=== PATIENT | female | born 1970 | race Caucasian/White ===

== ENCOUNTER 2023-03-06 14:23 | Emergency (ER) | payer OTHER, SELFPAY ==
[2023-03-06 14:34] VITALS: BP 146/89; PULSE 104; RESP 18; TEMP 36.7; O2SAT 95
[2023-03-06 14:36] VITALS: BP 134/93; PULSE 103; RESP 16; TEMP 36.4; O2SAT 94; BMI 29.0
--- NOTE | 2023-03-06 14:46 | PC.NURSE ---
PT ARRIVES SOMNOLENT, THOUGH ROUSBALE TO VERBAL STIM. ABLE TO ANSWER QUESTIONS, THOUGH INCONSISTENT. STATES LAST USED HEROIN THIS AM, 2 BAGS INTRAVENOUSLY. PINPOINT PUPILS, RR 16, EVEN AND NONLABOURED,.
[2023-03-06 16:10] LABS: MANUAL DIFF FLAG NO
[2023-03-06 16:12] VITALS: BP 114/79; PULSE 97; RESP 19; O2SAT 94
[2023-03-06 16:14] LABS: Basophils Percent Auto 0.3 % (0-2); Eosinophils Absolute Auto 0.1 X10*3/uL (0.0-0.4); Eosinophils Percent Auto 1.3 % (0-4); Hematocrit 36.5 % (37.0-47.0); Imm Gran Abs Auto 0.01 X10*3/uL (0.00-0.03); Imm Gran Pct Auto 0.2 % (0.0-0.4); Lymphocytes Absolute Auto 0.6 X10*3/uL (1.2-4.9); Lymphocytes Percent Auto 9.9 % (20-40); Mean Corpuscular HGB Conc 32.9 g/dl (31.0-35.0); Mean Corpuscular Hemoglobin 27.8 pg (27.0-33.0); Mean Corpuscular Volume 84.5 fL (80.0-98.0); Monocytes Absolute Auto 0.3 X10*3/uL (0.1-1.2); Monocytes Percent Auto 4.4 % (2-11); Neutrophils Absolute Auto 5.2 x10*3/uL (2.0-8.3); Neutrophils Percent Auto 83.9 % (45-73); Platelet Count 191 X10*3/uL (160-400); Red Blood Count 4.32 X10*6/uL (4.20-5.50); Red Cell Distribution Width 12.5 % (11.0-16.0); White Blood Count 6.2 X10*3/uL (4.8-10.8)
[2023-03-06 16:31] LABS: Lactic Acid 1.2 mmol/L (0.5-2.0)
[2023-03-06 16:36] LABS: Alanine Aminotransferase 16 U/L (0-31); Albumin Level 3.1 g/dL (3.5-5.0); Alkaline Phosphatase 60 U/L (39-117); Anion Gap 12 (12-20); Aspartate Amino Transferase 28 U/L (5-31); Bilirubin Total 0.2 mg/dL (0.0-1.0); Blood Urea Nitrogen 8 mg/dL (9-16); C Reactive Protein 3.06 mg/dL (< or = 0.50); Calcium 8.6 mg/dL (8.4-10.2); Carbon Dioxide 25 mmol/L (22-29); Chloride 105 mmol/L (96-108); Creatinine Clr Calc Pharmacy 99.6; Estimated Glomerular Filt Rate > 60; Glucose Random 90 mg/dL (60-115); Potassium 3.3 mmol/L (3.3-5.1); Sodium 139 mmol/L (135-145); Total Protein 7.2 g/dL (6.5-8.0)
--- NOTE | 2023-03-06 16:49 | ED_ITS ---
HPI - Skin/Abscess/Foreign Bdy General Chief complaint: Wound/Laceration Stated complaint: SWOLLEN EYES,?INFECT VS BITE PER EMS Time Seen by Provider: 03/06/23 16:28 Source: patient Mode of arrival: ambulatory Limitations: no limitations History of Present Illness HPI narrative: Patient 52 years old female with history of substance abuse comes here with swelling of the forehead with redness spreading to the eyes for last 2 days no fever patient the labs done prior to my evaluation showed normal WBC and Lactic acid level Related Data Previous Rx's Medication Instructions Recorded cephalexin 500 mg capsule 500 mg PO QID 10 days #40 caps 03/06/23 doxycycline hyclate 100 mg tablet 100 mg PO BID #20 tabs 03/06/23 Allergies Allergy/AdvReac Type Severity Reaction Status Date / Time acetaminophen [From TYLENOL] Allergy Unknown HIVES Verified 03/06/23 14:41 Review of Systems 2 Review of Systems: Yes all other systems are reviewed and are [facility] Social History Social History Smoked in Last 30 Days: No Use of substances other than those prescribed or required for medical reasons: Yes Substance Use Type: Heroin and IV Drugs Substance Use Frequency: Chronic Longstanding Last Used Substance: Just Prior to Admission Advance Directives: No Advance Directives Information Provided: No Physical Exam 2 Vital Signs: Vital Signs: Last Vital Signs Temp 97.6 F 03/06/23 14:36 Pulse 97 03/06/23 16:12 Resp 19 03/06/23 16:12 BP 114/79 03/06/23 16:12 Pulse Ox 94 03/06/23 16:12 O2 Del Method Room Air 03/06/23 16:12 BMI result Body Mass Index 29.0 Appearance: Alert. Oriented X3. No acute distress. ENT: Pharynx normal. Oral Mucosa moist small abscess on her forehead with pus discharge and surrounding cellulitis Neck: Normal inspection. Neck supple. CVS: Normal heart rate and rhythm. Pulses normal. Respiratory: No respiratory distress. Abdomen: Soft and nontender. Skin: Skin warm and dry. Small abscess with cellulitic changes on the forehead. Normal skin turgor. Neuro: Oriented X 3. Medications Administered Discontinued Medications Generic Name Dose Route Start Last Admin Trade Name Freq PRN Reason Stop Dose Admin Cephalexin HCl 500 mg 03/06/23 16:48 10/29/23 17:05 Cephalexin 500 Mg Capsule PO 03/06/23 16:49 500 mg ONCE ONE Administration Doxycycline Monohydrate 100 mg 03/06/23 16:48 03/06/23 17:05 Doxycycline Monohydrate 100 Mg Capsule PO 03/06/23 16:49 100 mg ONCE ONE Administration Medical Decision Making Medical Decision Making [facility] Narrative: Patient with uncomplicated staph infection likely MRSA with doxycycline and Keflex Differential Diagnosis Differential Diagnoses: The differential diagnosis associated with the presentation includes Cellulitis/MRSA infection Lab Data [facility] Lab Attestation statement: I reviewed the patient's lab results. 03/06/23 16:01 03/06/23 16:01 Labs: Lab Results 03/06/23 03/06/23 Range/Units 15:59 16:01 WBC 6.2 (4.8-10.8) X10*3/uL RBC 4.32 (4.20-5.50) X10*6/uL Hgb 12.0 (12.0-16.0) g/dl Hct 36.5 L (37.0-47.0) % MCV 84.5 (80.0-98.0) fL MCH 27.8 (27.0-33.0) pg MCHC 32.9 (31.0-35.0) g/dl RDW 12.5 (11.0-16.0) % Plt Count 191 (160-400) X10*3/uL MPV 10.0 (9.4-12.3) fL Immature Gran % (Auto) 0.2 (0.0-0.4) % Neut % (Auto) 83.9 H (45-73) % Lymph % (Auto) 9.9 L (20-40) % Bethel % (Auto) 4.4 (2-11) % Eos % (Auto) 1.3 (0-4) % Baso % (Auto) 0.3 (0-2) % Lymph # (Auto) 0.6 L (1.2-4.9) X10*3/uL Bethel # (Auto) 0.3 (0.1-1.2) X10*3/uL Eos # (Auto) 0.1 (0.0-0.4) X10*3/uL Baso # (Auto) 0.0 (0.0-0.2) X10*3/uL Abs Immat Gran (auto) 0.01 (0.00-0.03) X10*3/uL Absolute Neuts (auto) 5.2 (2.0-8.3) x10*3/uL Absolute Nucleated RBC 0.000 (0.0-0.012) X10*3/uL Nucleated RBC % (auto) 0.0 (0.0-0.2) /100WBC ESR 34 H (0-20) MM/HR Sodium 139 (135-145) mmol/L Potassium 3.3 (3.3-5.1) mmol/L Chloride 105 (96-108) mmol/L Carbon Dioxide 25 (22-29) mmol/L Anion Gap 12 (12-20) BUN 8 L (9-16) mg/dL Creatinine 0.62 (0.5-1.4) mg/dL Estim Creat Clear Calc 99.6 Estimated GFR > 60 Random Glucose 90 (60-115) mg/dL Lactic Acid 1.2 (0.5-2.0) mmol/L Calcium 8.6 (8.4-10.2) mg/dL Total Bilirubin 0.2 (0.0-1.0) mg/dL AST 28 (5-31) U/L ALT 16 (0-31) U/L Alkaline Phosphatase 60 (39-117) U/L C-Reactive Protein 3.06 H (< or = 0.50) mg/dL Total Protein 7.2 (6.5-8.0) g/dL Albumin 3.1 L (3.5-5.0) g/dL Hold Yellow Top See Note Discharge Plan Discharge Clinical Impression: Abscess Patient Disposition: Home, Self-Care Instructions: Abscess (ED) Additional Instructions: Likely have MRSA infection Take antibiotic as prescribed Follow with PCP Report to the ER if worsening of the swelling or redness Prescriptions: New cephalexin 500 mg capsule 500 mg PO QID 10 Days Qty: 40 0RF doxycycline hyclate 100 mg tablet 100 mg PO BID Qty: 20 0RF Interventions: ED Discharge Assessment Last Done: 03/06/23 17:27 Discharge Date/Time: 03/06/23 17:29
[2023-03-06 16:56] LABS: Erythrocyte Sedimentation Rate 34 MM/HR (0-20)
[2023-03-06] MEDS: Doxycycline Monohydrate 100 MG CAPSULE PO (17:05)
[2023-03-06] MEDS: cephALEXin 500 MG CAPSULE PO (17:05)
--- OUTSIDE RECORDS SUMMARY | 2023-03-06 17:14 | XMS_ITS | Continuity of Care Document ---
Author Name Unknown Organization [facility] [employer] Address [address], [address] [place] [address]- Care Team Providers Care Procurement Cost Coordinator Name Role Phone Kristin Armas MD Primary Care Physician [phone] Encounter [facility] [place] Date(s): 10/24/20 - 11/23/20 [facility] [employer] [facility] [address] [place], [place] [address] Attending Physician: AdmJennifer burton Admitting Physician: AdmtrJennifer Referring Physician: Admtr, Ar8 Allergies, Adverse Reactions, Alerts Substance Reaction Severity Status NKA Active Immunizations Given and Recorded Vaccine Date Status Refusal Reason influenza virus vaccine, inactivated 02/02/11 Give n pneumococcal 13-valent vaccine 1 04/28/10 Given pneumococcal 13-valent vaccine 2 10/14/09 Given pneumococcal 13-valent vaccine 3 04/15/09 Given FluLaval (oldterm) 02/17/10 Given influ virus vac, H1N1, inactive(oldterm) 03/29/09 Given Hepatitis A-Hepatitis B Vaccine 4 11/15/08 Given Hepatitis A-Hepatitis B Vaccine 5 07/29/08 Given Hepatitis A-Hepatitis B Vaccine 6 12/11/07 Given Pneumococcal Poly (PPV23) (oldterm) 12/11/07 Given 1Admin Note: 3 of 3 Protocol [id number] 2Admin Note: 2 of 3 [facility] protocol [id number] 3Admin Note: 1 of 3 [facility] protocol [id number] 4Admin Note: #3 5Admin Note: #2 6Admin Note: #1 Medications albuterol 0.083% inhalation solution 3 mL = 2.5 mg, Inhalation, Every 6 hours, PRN for wheezing, Maintenance, 07/16/16 16:16:52, Solution Start Date: 3/10/17 Status: Ordered BuPROPion (Eqv-Wellbutrin SR) = 150 mg, By Mouth, 2 times a day, 0 Refills, Maintenance, 03/18/20 14:50:00 EST Start Date: 03/18/20 Status: Ordered Colace sodium 100 mg oral capsule 100 mg, 1, capsule, By Mouth, 2 times a day, PRN, # 60 capsule, Refills 5, Tot. Refills 5, Maintenance, for constipation, 10/24/20 14:51:00 EDT, Route to Pharmacy Electronically, [facility], Partial fill upon patient request if the prescri... Start Date: 10/24/20 Status: Ordered Descovy 200 mg-25 mg oral tablet 1 tablet, By Mouth, Daily, Maintenance, 07/16/16 16:15:15, Tablet Start Date: 07/16/16 Status: Ordered diltiazem 120 mg oral tablet 1 tablet = 120 mg, By Mouth, Daily, Maintenance, 07/16/16 16:15:35, Tablet Start Date: 07/16/16 Status: Ordered Estrace Vaginal Cream 0.1 mg/g See Instructions, 1 Gm Vaginally twice per week, # 42.5 Gm, 3 Refills, Maintenance, 03/18/20 15:36:00 EST, [facility]/pharmacy #[id number], 159, cm, 03/18/20 14:44:00 EST, Height, 63.6, kg, 06/22/19 22:42:00 EST,Dry Weight Start Date: 03/18/20 Status: Ordered ibuprofen 600 mg oral tablet 600 mg, 1, tablet, By Mouth, 3 times a day, PRN, with food, # 20 tablet, Refills 0, Tot. Refills 0,Maintenance, as needed for pain, 11/03/18 14:48:39 EDT, Print Requisition Start Date: 11/03/18 Status: Ordered ibuprofen 600 mg oral tablet 600 mg, 1, tablet, By Mouth, 4 times a day, # 30 tablet, Refills 0, Tot. Refills 0, Acute 11/29/20 8:13:00 EDT, 11/11/20 8:13:00 EDT, Route to Pharmacy Electronically, [facility], Partial fill upon patient request if the prescription is fo... Start Date: 11/11/20 Stop Date: 11/29/20 Status: Ordered Methadone Liquid mg, By Mouth, 0 Refills, Maintenance, 11/11/20 6:54:00 EDT, Solution, Partial fill upon patient request if the prescription is for a schedule II opioid drug. Start Date: 11/11/20 Status: Ordered naloxone 4 mg/0.1 mL nasal spray = 4 mg, Naris, Left, Once, PRN Opiate Overdose, may repeat every 2 to 3 minutes until patient responds, # 2 each, 0 Refills, Soft Stop, 07/18/16 14:51:45 Start Date: 07/18/16 Status: Ordered Omeprazole By Mouth, Daily, 0 Refills, Maintenance, 03/18/20 14:51:00 EST Start Date: 03/18/20 Status: Ordered oxybutynin 10 mg/24 hr oral tablet, extended release 3 tablet = 30 mg, By Mouth, Daily, # 90 tablet, 5 Refills, Maintenance, 09/02/20 10:12:00 EDT, ER Tablet, [facility], Partial fill upon patient request if the prescription is for a schedule II opioid drug., 159, cm, 09/02/20 9:45:00 EDT, H... Start Date: 09/02/20 Status: Ordered PARoxetine 20 mg oral tablet 20 mg, 1, tablet, By Mouth, Daily, Maintenance, 07/16/16 16:16:43 Start Date: 07/16/16 Status: Ordered prazosin 2 mg oral capsule 3 capsule = 6 mg, By Mouth, Daily at bedtime, Maintenance, 07/16/16 16:16:10, Capsule Start Date: 07/16/16 Status: Ordered Singulair 10 mg oral tablet 10 mg, 1, tablet, By Mouth, Refills 0, Tot. Refills 0, 07/29/08 9:49:24 Start Date: 07/29/08 Status: Ordered Tivicay 50 mg oral tablet 1 tablet = 50 mg, By Mouth, Daily, Maintenance, 07/16/16 16:15:54, Tablet Start Date: 07/16/16 Status: Ordered traZODone 150 mg oral tablet 2 tablet = 300 mg, By Mouth, Daily at bedtime, Maintenance, 07/16/16 16:16:35 EST, Tablet Start Date: 07/16/16 Status: Ordered Problem List Condition Effective Dates Status Health Status Inform ant AIDS(Confirmed) Active Anxiety(Confirmed) Active Asthma(Confirmed) Active Vaginal atrophy(Confirmed) Active Depression(Confirmed) Active Endometriosis(Confirmed) Active GERD (gastroesophageal reflu x disease)(Confirmed) Active Hepatitis C(Confirmed) Active History of heroin abuse(Confirmed) Active History of MRSA infection(Confirmed) Active Mixed incontinence(Confirmed) Active Methadone maintenance therapy(Confirmed) Active Osteoarthritis of hip(Confirmed) Active Polysubstance abuse - fentan yl 2018, amphetamines 2019, heroin 2017(Confirmed) Active PTSD - Post-traumatic stress disorder(Confirmed) Active Restless legs syndrome(Confirmed) Active SVT - Supraventricular tachycardia(Confirmed) Active Thrush(Confirmed) Active Tobacco user(Confirmed) Active Social History Social History Type Response Smoking Status 5-9 cigarettes (betw een 1/4 to 1/2 pack)/day in last 30 days entered on: 06/22/19 Sex
--- OUTSIDE RECORDS SUMMARY | 2023-03-06 17:14 | XMS_ITS | Continuity of Care Document ---
Author Name Unknown Organization [facility] [employer] Address [address], [address] [place] [address]- Care Team Providers Care Industrial Retrofit Designer Name Role Phone Kristin Armas MD Primary Care Physician [phone] [place] [facility] [place] Date(s[place] 11/25/21 - 03/10/22 [facility] [employer] [address] [place], [place] [address] Attending Physician: Elisa Woods MD Admitting Physician: Elisa Woods MD Referring Physician: So Fan MD Allergies, Adverse Reactions, Alerts No Known Allergies Immunizations Given and Recorded Vaccine Date Status Refusal Reason influenza virus vaccine, inactivated 01/28/22 Give n influenza virus vaccine, inactivated 02/02/11 Give n [...] Given 1Admin Note: 3 of 3 Protocol [id number] 2Admin Note: 2 of 3 [facility] protocol [id number] 3Admin Note: 1 of 3 [facility] protocol [id number] 4Admin Note: #3 5Admin Note: #2 6Admin Note: #1 Medications albuterol 0.083% inhalation solution 3 mL = 2.5 mg, BAND Nebulizer, Every 4 hours, PRN Wheezing/Shortness of Breath, # 30 each, 0 Refills, Maintenance, 01/28/22 11:41:00 EDT, Inhalation Solution, [facility], Partial fillupon patient request if the prescription is for a sched... Start Date: 01/28/22 Status: Ordered albuterol 0.083% inhalation solution 3 mL = 2.5 mg, Inhalation, Every 6 hours, PRN for wheezing, Maintenance, 07/16/16 16:16:52, Solution Start Date: 07/16/16 Status: Ordered albuterol CFC free 90 mcg/inh inhalation aerosol 2, puffs, Inhalation, 4 times a day, PRN, # 8.5 Gm, Refills 0, Tot. Refills 0, Maintenance, 01/28/22 11:44:00 EDT, Aerosol, Route to Pharmacy Electronically, [id number], [facility], 157, cm, 01/28/22 11:34:00 EDT,... Start Date: 01/28/22 Status: Ordered BuPROPion (Eqv-Wellbutrin SR) = 150 mg, By Mouth, 2 times a day, 0 Refills, Maintenance, 03/18/20 14:50:00 EST Start Date: 03/18/20 Status: Ordered Descovy 200 mg-25 mg oral tablet 1 tablet, By Mouth, Daily, Maintenance, 07/16/16 16:15:15, Tablet Start Date: 07/16/16 Status: Ordered diltiazem 120 mg oral tablet 1 tablet = 120 mg, By Mouth, Daily, Maintenance, 07/16/16 16:15:35, Tablet Start Date: 07/16/16 Status: Ordered docusate sodium 100 mg oral capsule 100 mg, 1, capsule, By Mouth, 2 times a day, PRN, # 20 capsule, Refills 0, Tot. Refills 0, Maintenance, for constipation, 01/29/22 8:08:00 EDT, Route to Pharmacy Electronically, [facility], Partial fill upon patient request if the prescrip... Start Date: 01/29/22 Status: Ordered Estrace Vaginal Cream 0.1 mg/g See Instructions, 1 Gm Vaginally twice per week, # 42.5 Gm, 3 Refills, Maintenance, 10/02/21 12:19:00 EDT, [facility], 157.48, cm, 11/11/20 6:51:00 EDT, Height, 68.3, kg, 11/11/20 6:51:00 EDT, Dry Weight Start Date: 10/02/21 Status: Ordered gabapentin 400 mg oral capsule 400 mg, 1, capsule, By Mouth, 3 times a day, # 120 capsule, Refills 0, Maintenance, 01/26/22 20:59:00 EDT, Partial fill upon patient request if the prescription is for a schedule II opioid drug. Start Date: 01/26/22 Status: Ordered Melatonin 5 mg oral tablet 1 tablet = 5 mg, By Mouth, Daily at bedtime, PRN for insomnia, # 60 tablet, 0 Refills, Maintenance,01/26/22 20:59:00 EDT, Tablet, Partial fill upon patient request if the prescription is for a schedule II opioid drug. Start Date: 01/26/22 Status: Ordered Methadone Liquid = 79 mg, By Mouth, 0 Refills, Maintenance, 11/11/20 6:54:00 EDT, Solution, Partial fill upon patient request if the prescription is for a schedule II opioid drug. Start Date: 11/11/20 Status: Ordered mirabegron 25 mg oral tablet, extended release 1 tablet = 25 mg, By Mouth, Daily, do not crush or chew, # 30 tablet, 5 Refills, Maintenance, 10/02/21 12:17:00 EDT, ER Tablet, [facility], Partial fill upon patient request if the prescription is for a schedule II opioid drug., 157.48, cm... Start Date: 10/02/21 Status: Ordered Omeprazole By Mouth, Daily, 0 Refills, Maintenance, 03/18/20 14:51:00 EST Start Date: 03/18/20 Status: Ordered oxybutynin 10 mg/24 hr oral tablet, extended release 1 tablet = 10 mg, By Mouth, Daily, # 30 tablet, 0 Refills, Maintenance, 01/26/22 20:59:00 EDT, ER Tablet, Partial fill upon patient request if the prescription is for a schedule II opioid drug. Start Date: 01/26/22 Status: Ordered PARoxetine 20 mg oral tablet [...] Date: 07/16/16 Status: Ordered Problem List Condition Confirmation Course Effective Dates Status H ealth Status Informant COPD exacerbation Confirmed Active Acute respiratory failure with hypoxia Confirmed Active AIDS Confirmed Active Anxiety Confirmed Active Asthma Confirmed Active Vaginal atrophy Confirmed Active Depression Confirmed Active Endometriosis Confirmed Active GERD (gastroesophageal reflux disease) Confirmed Active Hepatitis C - undetectable after treatment Confirmed Active History of heroin abuse Confirmed Active History of MRSA infection Confirmed Active HIV (human immunodeficiency virus infection) Confirmed Active Hypokalemia Confirmed Active Opiate abuse, episodic Confirmed Active Methadone maintenance therapy Confirmed Active Osteoarthritis of hip Confirmed Active Polysubstance abuse - fentanyl 2018, amphetamines 2018, heroin 2016 Confirmed Active PTSD - Post-traumatic stress disorder Confirmed Active Restless legs syndrome Confirmed Active SVT - Supraventricular tachycardia Confirmed Active Thrush Confirmed Active Tobacco user Confirmed Active Urge incontinence Confirmed Active Urinary incontinence Confirmed Active Social History Social History Type Response Smoking Status 5-9 cigarettes (betw een 1/4 to 1/2 pack)/day in last 30 days entered on: 06/22/19 Sex Patient Care team information Personnel Name: Kristin Armas MD Address: Address: [address] [place] [address]
--- OUTSIDE RECORDS SUMMARY | 2023-03-06 17:14 | XMS_ITS | Continuity of Care Document ---
Author Name Unknown Organization [facility] [employer] [facility] Address [address], [address] [place] [address]- Care Team Providers Care District Manager Major Accounts Sales Name Role Phone Meng REGALADO, So Olivo Primary Care Physician [place] [facility] [place]06[place]20 [place] 12/06/20 [facility] [address] [place], [place] [address] Allergies, Adverse Reactions, Alerts Substance Reaction Severity [...] Given 1Admin Note: 3 of 3 Protocol [id number] 2Admin Note: 2 of 3 [facility] protocol [id number] 3Admin Note: 1 of 3 [facility] protocol [id number] 4Admin Note: #3 5Admin Note: #2 6Admin Note: #1 Medications albuterol 0.083% inhalation solution 3 mL = 2.5 mg, Inhalation, Every 6 hours, PRN for wheezing, Maintenance, 07/16/16 16:16:52, Solution Start Date: 07/16/16 Status: Ordered BuPROPion (Eqv-Wellbutrin SR) = 150 [...] Gm, 3 Refills, Maintenance, 03/18/20 15:36:00 EST, [id number], 159, cm, 03/18/20 14:44:00 EST, Height, 63.6, kg, 06/22/19 22:42:00 EST,Dry Weight Start Date: 03/18/20 Status: Ordered ibuprofen 600 mg oral tablet 600 mg, 1, tablet, By Mouth, 3 times a day, PRN, with food, # 20 tablet, Refills 0, Tot. Refills 0,Maintenance, as needed for pain, 11/03/18 14:48:39 EDT, Print Requisition Start Date: 11/03/18 Status: Ordered Methadone Liquid mg, By Mouth, [...]
--- OUTSIDE RECORDS SUMMARY | 2023-03-06 17:14 | XMS_ITS | Continuity of Care Document ---
Author Name [facility] Address [address], [address] [place] [address]- Care Team Providers Care Associate Loan Officer Name Role Phone Meng REGALADO, So Olivo Primary Care Physician En[facility] [place] Date(s): 12/01/20 - [facility]31[facility] [address] [place], [place] [address] Allergies, Adverse Reactions, Alerts Substance Reaction [...] Given 1Admin Note: 3 of 3 Protocol [id number] 2Admin Note: 2 of 3 [facility] protocol [id number] 3Admin Note: 1 of 3 [facility] protocol [id number] 4Admin Note: #3 5Admin Note: #2 6Admin [...]
--- OUTSIDE RECORDS SUMMARY | 2023-03-06 17:14 | XMS_ITS | Continuity of Care Document ---
Author Name Unknown Organization [facility] Address [address] [place] [address]- Care Team Providers Care Immigration Coordinator Name Role Phone Kristin Amras MD Primary Care Physician Encounter [facility] Date(s): 07/01/22 - 07/31/22 [facility] [address] [place] [id number] Allergies, Adverse Reactions, Alerts No Known Allergies [...] Given 1Admin Note: 3 of 3 Protocol [id number] 2Admin Note: 2 of 3 [facility] protocol [id number] 3Admin Note: 1 of 3 [facility] protocol [id number] 4Admin Note: #3 5Admin Note: #2 6Admin [...] 11:44:00 EDT, Aerosol, Route to Pharmacy Electronically, [id number], [facility], 157, cm, 01/28/22 11:34:00 [...] not crush or chew, # 30 tablet, 3 Refills, Maintenance, 07/01/22 13:24:00 EST, ER Tablet, [facility], Partial fill upon patient request if the prescription is for a schedule II opioid drug., 157, cm, 0... Start Date: 07/01/22 Status: Ordered Omeprazole By Mouth, Daily, 0 [...] on: 06/22/19 Sex Patient Care team information Care Team Personnel Name: Marlys Cobos RN Position: [facility] RN Member Role: Primary Care Nurse Name: Ekaterina Gold RN Position: [facility] RN Member Role: Primary Care Nurse Name: Tamy Edward Position: [facility] Outreach Member Role: Lifetime Consulting Physician Name: Kristin Armas MD Position: [facility] Physician (General Medicine) Member Role: PCP Address: Address: [address] [place] [id number] Care Team Related Persons Name: ANYI CORREIA Address: home [address] [place] [address] Name: RAVEN DOTSON Address: home [address] [place] [address] Name: MITCHELL HUANG Address: [place] [address] Name: TANESHA ALMEIDA Address: home [address] [place] [address]
--- OUTSIDE RECORDS SUMMARY | 2023-03-06 17:14 | XMS_ITS | Continuity of Care Document ---
Author Name Unknown Organization [facility] Address [address] [place] [address]- Care Team Providers Care Technology Manager Name Role Phone Meng REGALADO, So Olivo Primary Care Physician [place] [facility] [place]s): 12/08/20 - 01/07/21 [facility] [address] [place] [id number] Attending Physician: AdmJennifer burton Admitting Physician: Admtr, Jennifer Referring Physician: Admtr, Ar8 Allergies, Adverse Reactions, [...] Given 1Admin Note: 3 of 3 Protocol [id number] 2Admin Note: 2 of 3 [facility] protocol [id number] 3Admin Note: 1 of 3 [facility] protocol [id number] 4Admin Note: #3 5Admin Note: #2 6Admin [...] Gm, 3 Refills, Maintenance, 03/18/20 15:36:00 EST, [facility]/pharmacy #[id number], 159, cm, 03/18/20 14:44:00 EST, Height, [...] hip(Confirmed) Active Polysubstance abuse - fentan yl 2019, amphetamines 2019, heroin 2017(Confirmed) Active PTSD - Post-traumatic stress disorder(Confirmed) Active Restless legs syndrome(Confirmed) Active SVT - Supraventricular tachycardia(Confirmed) Active Thrush(Confirmed) Active Tobacco user(Confirmed) Active Social History Social History Type Response Smoking Status 5-9 cigarettes (betw een 1/4 to 1/2 pack)/day in last 30 days entered on: 06/22/19 Sex
--- OUTSIDE RECORDS SUMMARY | 2023-03-06 17:15 | XMS_ITS | Continuity of Care Document ---
Author Name Unknown Organization [facility] Address [address] [place] [address]- Care Team Providers Care Automotive Refinish Technician Name Role Phone So Fan MD Primary Care Physician [phone] En[place] [facility] [place] Date(s): 10/28/20 - 01/07/21 [facility] [address] [place] [id number] Attending Physician: Bucky Heath MD Admitting Physician: Bucky Heath MD Referring Physician: So Fan MD Allergies, Adverse Reactions, Alerts Substance Reaction Severity [...] Given 1Admin Note: 3 of 3 Protocol [id number] 2Admin Note: 2 of 3 [facility] protocol [id number] 3Admin Note: 1 of 3 [facility] protocol [id number] 4Admin Note: #3 5Admin Note: #2 6Admin [...] Gm, 3 Refills, Maintenance, 03/18/20 15:36:00 EST, [facility]/pharmacy #[id number], 159, cm, 03/18/20 14:44:00 EST, [...] Osteoarthritis of hip(Confirmed) Active Polysubstance abuse - jamie yl 2018, amphetamines 2019, heroin 2017(Confirmed) Active PTSD - Post-traumatic stress disorder(Confirmed) Active Restless legs syndrome(Confirmed) Active SVT - Supraventricular tachycardia(Confirmed) Active Thrush(Confirmed) Active Tobacco user(Confirmed) Active Social History Social History Type Response Smoking Status 5-9 cigarettes (betw een 1/4 to 1/2 pack)/day in last 30 days entered on: 06/22/19 Sex
--- OUTSIDE RECORDS SUMMARY | 2023-03-06 17:15 | XMS_ITS | Continuity of Care Document ---
Author Name Unknown Organization [facility] Tray Adam n[facility] Address [address], [address] [place] [address]- Care Team Providers Care Segment Block Layer Name Role Phone Meng REGALADO, So Olivo Primary Care Physician [facility] [place] 12/29/20 [facility] [address], [address] [place], [place] [address] Allergies, Adverse Reactions, Alerts Substance Reaction Severity [...] Given 1Admin Note: 3 of 3 Protocol [id number] 2Admin Note: 2 of 3 [facility] protocol [id number] 3Admin Note: 1 of 3 [facility] protocol [id number] 4Admin Note: #3 5Admin Note: #2 6Admin [...]
--- OUTSIDE RECORDS SUMMARY | 2023-03-06 17:15 | XMS_ITS | Continuity of Care Document ---
Author Name Unknown Organization [facility] [place] [facility] [employer] [employer] Address [address], [address] [place] [address]- Care Team Providers Care Poultry Veterinarian Name Role Phone Kristin Armas MD Primary Care Physician [phone] Encounter [facility] [place] Date(s): 12/28/21 - 01/27/22 [facility] RELEASE[facility] Darian[facility]atts [facility] [address], 4th Floor [place], [place] [address] Attending Physician: AdmJennifer burton Admitting Physician: AdmtrJennifer Referring Physician: Admtr, Ar8 Allergies, Adverse Reactions, Alerts No Known Allergies [...] Given 1Admin Note: 3 of 3 Protocol [id number] 2Admin Note: 2 of 3 [facility] protocol [id number] 3Admin Note: 1 of 3 [facility] protocol [id number] 4Admin Note: #3 5Admin Note: #2 6Admin [...] opioid drug. Start Date: 01/26/22 Status: Ordered ibuprofen 600 mg oral tablet 600 mg, 1, tablet, By Mouth, 4 times a day, # 30 tablet, Refills 0, Tot. Refills 0, Acute 02/06/22 11:01:00 EDT, 01/26/22 11:00:00 EDT, Route to Pharmacy Electronically, [facility], Partial fill upon patient request if the prescription is... Start Date: 01/26/22 Stop Date: 02/06/22 Status: Ordered Melatonin 5 mg oral tablet [...] Effective Dates Status Health Status Inform ant COPD exacerbation(Confirmed) Active Acute respiratory failure wi th hypoxia(Confirmed) Active AIDS(Confirmed) Active Anxiety(Confirmed) Active Asthma(Confirmed) Active Vaginal atrophy(Confirmed) Active Depression(Confirmed) Active Endometriosis(Confirmed) Active GERD (gastroesophageal reflu x disease)(Confirmed) Active Hepatitis C - undetectable a fter treatment(Confirmed) Active History of heroin abuse(Confirmed) Active History of MRSA infection(Confirmed) Active HIV (human immunodeficiency virus infection)(Confirmed) Active Hypokalemia(Confirmed) Active Opiate abuse, episodic(Confirmed) Active Methadone maintenance therapy(Confirmed) Active Osteoarthritis of hip(Confirmed) Active Polysubstance abuse - fentan yl 2018, amphetamines 2019, heroin 2017(Confirmed) Active PTSD - Post-traumatic stress disorder(Confirmed) Active Restless legs syndrome(Confirmed) Active SVT - Supraventricular tachycardia(Confirmed) Active Thrush(Confirmed) Active Tobacco user(Confirmed) Active Urge incontinence(Confirmed) Active Urinary incontinence(Confirmed) Active Social History Social History Type Response Smoking Status 5-9 cigarettes (betw een 1/4 to 1/2 pack)/day in last 30 days entered on: 06/22/19 Sex Care Team Personnel Name: Kristin Armas MD Address: [address] [place] [address], [place] [address]
--- OUTSIDE RECORDS SUMMARY | 2023-03-06 17:15 | XMS_ITS | Continuity of Care Document ---
Author Name Unknown Organization [facility] [place] Adam [employer] Address [address], [address] [place] [address]- Care Team Providers Care Director Of Community Center Name Role Phone Kristin Armas MD Primary Care Physician [phone] [place] [facility] [place]/21/21 - 01/20/22 [email or web address] [address], 4th [address] [place], [place] [address] Allergies, Adverse Reactions, Alerts No Known [...] Given 1Admin Note: 3 of 3 Protocol [id number] 2Admin Note: 2 of 3 [facility] protocol [id number] 3Admin Note: 1 of 3 [facility] protocol [id number] 4Admin Note: #3 5Admin Note: #2 6Admin [...] Dry Weight Start Date: 10/02/21 Status: Ordered ibuprofen 600 mg oral tablet 600 mg, 1, tablet, By Mouth, 4 times a day, # 30 tablet, Refills 0, Tot. Refills 0, Acute 01/30/22 11:53:00 EDT, 01/12/22 11:53:00 EDT, Route to Pharmacy Electronically, [facility], Partial fill upon patient request if the prescription is... Start Date: 01/12/22 Stop Date: 01/30/22 Status: Ordered Methadone Liquid mg, By Mouth, [...] 157.48, cm... Start Date: 10/02/21 Status: Ordered naloxone 4 mg/0.1 mL nasal spray = 4 mg, Naris, Left, Once, PRN Opiate Overdose, may repeat every 2 to 3 minutes until patient responds, # 2 each, 0 Refills, Soft Stop, 07/18/16 14:51:45 Start Date: 07/18/16 Status: Ordered Omeprazole By Mouth, Daily, 0 Refills, Maintenance, 03/18/20 14:51:00 EST Start Date: 03/18/20 Status: Ordered PARoxetine 20 mg oral tablet [...] abuse(Confirmed) Active History of MRSA infection(Confirmed) Active Methadone maintenance therapy(Confirmed) Active Osteoarthritis of hip(Confirmed) Active Polysubstance abuse - fentan yl 2018, amphetamines 2018, heroin 2017(Confirmed) Active PTSD - Post-traumatic stress disorder(Confirmed) Active Restless legs syndrome(Confirmed) Active SVT - Supraventricular tachycardia(Confirmed) Active Thrush(Confirmed) Active Tobacco user(Confirmed) Active Urge incontinence(Confirmed) Active Social History Social History Type Response Smoking Status 5-9 cigarettes (betw een 1/4 to 1/2 pack)/day in last 30 days entered on: 06/22/19 Sex Implantable Device List Procedure Provider Procedure Date Device Type Site Insertion Sacral Nerve Stimulator Stage Peggy REGALADO, Elisa Melendez 01/12/22 Unknown Back Device Identifier Serial Number Lot or Batch Number Manufacturing Date Expiration Date Distinct Identification Code MRI Safety Implantable Status Assigning Authority Unknown Unknown [id number] Unknown 07/10/23 Unknown Unknown Active Unkn own Care Team Personnel Name: Pawel REGALADO, Kristin Huffman Address: [address] [place] [place] [id number]
--- OUTSIDE RECORDS SUMMARY | 2023-03-06 17:15 | XMS_ITS | Continuity of Care Document ---
Author Name Unknown Organization [facility] Address [address] [place] [address]- Care Team Providers Care Carbide Tool Die Maker Name Role Phone Not on Staff, PCP Primary Care Physician Unavail able [place] [facility] [place] - 06/09/19 [facility] [address] [place] [address]- Attending Physician: Geovany George MD Admitting Physician: Geovany George MD Referring Physician: Farhad LADD, Giovana Steen Allergies, Adverse Reactions, Alerts Substance Reaction Severity [...] Given 1Admin Note: 3 of 3 Protocol [id number] 2Admin Note: 2 of 3 [facility] protocol [id number] 3Admin Note: 1 of 3 [facility] protocol [id number] 4Admin Note: #3 5Admin Note: #2 6Admin Note: #1 Medications albuterol 0.083% inhalation solution 3 mL = 2.5 mg, Inhalation, Every 6 hours, PRN for wheezing, Maintenance, 07/16/16 16:16:52, Solution Start Date: 07/16/16 Status: Ordered cloNIDine 0.1 mg oral tablet 0.1 mg, 1, tablet, By Mouth, 2 times a day, Maintenance, 07/16/16 16:15:25 Start Date: 07/16/16 Status: Ordered D 1000 IU oral tablet 1 tablet = 1,000 International_Units, By Mouth, Daily, Maintenance, 07/16/16 16:16:04, Tablet Start Date: 07/16/16 Status: Ordered Descovy 200 mg-25 mg oral tablet 1 tablet, By Mouth, Daily, Maintenance, 07/16/16 16:15:15, Tablet Start Date: 07/16/16 Status: Ordered diltiazem 120 mg oral tablet 1 tablet = 120 mg, By Mouth, Daily, Maintenance, 07/16/16 16:15:35, Tablet Start Date: 07/16/16 Status: Ordered famotidine 20 mg oral tablet 20 mg, 1, tablet, By Mouth, 2 times a day, Maintenance, 07/16/16 16:15:45 Start Date: 07/16/16 Status: Ordered ibuprofen 600 mg oral tablet 600 mg, 1, tablet, By Mouth, 3 times a day, PRN, with food, # 20 tablet, Refills 0, Tot. Refills 0,Maintenance, as needed for pain, 11/03/18 14:48:39 EDT, Print Requisition Start Date: 11/03/18 Status: Ordered naloxone 4 mg/0.1 mL nasal spray = 4 mg, Naris, Left, Once, PRN Opiate Overdose, may repeat every 2 to 3 minutes until patient responds, # 2 each, 0 Refills, Soft Stop, 07/18/16 14:51:45 Start Date: 07/18/16 Status: Ordered PARoxetine 20 mg oral tablet [...] 07/29/08 9:49:24 Start Date: 07/29/08 Status: Ordered Symbicort 160mcg/4.5mcg Inhaler 2, puffs, Inhalation, 2 times a day, Maintenance, 07/16/16 16:17:01, Aerosol Start Date: 07/16/16 Status: Ordered Tivicay 50 mg oral tablet 1 tablet = 50 mg, By Mouth, Daily, Maintenance, 07/16/16 16:15:54, Tablet Start Date: 07/16/16 Status: Ordered traZODone 150 mg oral tablet 2 tablet = 300 mg, By Mouth, Daily at bedtime, Maintenance, 07/16/16 16:16:35 EST, Tablet Start Date: 07/16/16 Status: Ordered Problem List Condition Effective Dates Status Health Status Inform ant Anxiety(Confirmed) Active Asthma(Confirmed) Active Cervical dysplasia(Confirmed) Active Endometriosis(Confirmed) Active GERD (gastroesophageal reflu x disease)(Confirmed) Active HIV - Human immunodeficiency virus(Confirmed) 1, 2 Active MRSA - Methicillin-resistant staphylococcus aureus(Confirmed) Active PTSD - Post-traumatic stress disorder(Confirmed) Active Restless legs syndrome(Confirmed) Active Thrush(Confirmed) Active 1did not tolerate atripla-anxiety, confusion, begin complera 03/05/11 2begin atripla 02/02/11 Social History Social History Type Response Smoking Status 5-9 cigarettes (betw een 1/4 to 1/2 pack)/day in last 30 days entered on: 11/03/18 Sex
--- OUTSIDE RECORDS SUMMARY | 2023-03-06 17:15 | XMS_ITS | Continuity of Care Document ---
Author Name Unknown Organization [facility] Tray Adam [employer] [facility] Address [address], [address] [place] [address]- Care Team Providers Care Event Marketing Coordinator Name Role Phone Kristin Armas MD Primary Care Physician [phone] En[place] [facility] [place] Date(s): 10/06/22 - 11/05/22 [facility] [place] FarmerIn[facility]ologic[facility] [address], [address] [place], [place] [email or web address] Allergies, Adverse Reactions, Alerts No Known Allergies [...] Given 1Admin Note: 3 of 3 Protocol [id number] 2Admin Note: 2 of 3 [facility] protocol [id number] 3Admin Note: 1 of 3 [facility] protocol [id number] 4Admin Note: #3 5Admin Note: #2 6Admin [...] 11:44:00 EDT, Aerosol, Route to Pharmacy Electronically, [id number], [facility], 157, cm, 01/28/22 11:34:00 [...] opioid drug. Start Date: 11/11/20 Status: Ordered Myrbetriq 25 mg oral tablet, extended release See Instructions, TAKE 1 TABLET BY MOUTH DAILY. DO NOT CRUSH OR CHEW, # 28 tablet, 2 Refills, Maintenance, 10/06/22 15:46:00 EDT, [facility], 157, cm, 01/28/22 15:05:00 EDT, Height, 68.5, kg, 01/27/22 11:03:00 EDT, Dry Weight Start Date: 10/06/22 Status: Ordered Omeprazole By Mouth, Daily, 0 [...] mg, 1, tablet, By Mouth, Daily, Maintenance, 03/10/17 16:16:43 Start Date: 07/16/16 Status: Ordered prazosin [...] Team Personnel Name: Marlys Cobos RN Position: [facility] RN Member Role: Primary Care Nurse Name: Ekaterina Gold RN Position: [facility] RN Member Role: Primary Care Nurse Name: Tamy Edward Position: [facility] Outreach Member Role: Lifetime Consulting Physician Name: Kristin Armas MD Position: [facility] Physician - Primary Care Member Role: PCP Address: Address: [address] [place] [address] [place] Care Team Related Persons Name: ANYI CORREIA Address: home [address] [place] [address] Name: RAVEN DOTSON Address: home [address] [place] [address] Name: MITCHELL HUANG Address: [place] [address] Name: TANESHA ALMEIDA Address: home [address] [place] [address]
--- OUTSIDE RECORDS SUMMARY | 2023-03-06 17:15 | XMS_ITS | Continuity of Care Document ---
Author Name Unknown Organization [facility] y Address [address] [place] [address]- Care Team Providers Care Machine Repairman Name Role Phone Not on Staff, PCP Primary Care Physician Unavail able Encounter [facility] Date(s): 05/10/19 - 05/20/19 [facility] [address] [place] [address]- Attending Physician: Jennifer Machuca Admitting Physician: Admtr, Jennifer Referring Physician: Admtr, [...] Given 1Admin Note: 3 of 3 Protocol [id number] 2Admin Note: 2 of 3 [facility] protocol [id number] 3Admin Note: 1 of 3 [facility] protocol [id number] 4Admin Note: #3 5Admin Note: #2 6Admin [...]
--- OUTSIDE RECORDS SUMMARY | 2023-03-06 17:15 | XMS_ITS | Continuity of Care Document ---
Author Name Unknown Organization [facility] Tray Adam n's [facility] Address [address] [place] [address], [address] [place] [address]- Care Team Providers Care Teacher Instrumental Name Role Phone Meng REGALADO, So Olivo Primary Care Physician [place] [facility] [place]10[place]21 - 03[facility]12/21 [facility] [address], [address] [place], [place] [address] Allergies, Adverse Reactions, Alerts Substance Reaction [...] Given 1Admin Note: 3 of 3 Protocol [id number] 2Admin Note: 2 of 3 [facility] protocol [id number] 3Admin Note: 1 of 3 [facility] protocol [id number] 4Admin Note: #3 5Admin Note: #2 6Admin [...] Daily, # 90 tablet, 5 Refills, Maintenance, 02/11/21 11:34:00 EDT, ER Tablet, [facility], Partial fill upon patient request if the prescription is for a schedule II opioid drug., 157.48, cm, 11/11/20 6:51:00 EDT... Start Date: 02/11/21 Status: Ordered PARoxetine 20 mg oral tablet [...]
--- OUTSIDE RECORDS SUMMARY | 2023-03-06 17:15 | XMS_ITS | Continuity of Care Document ---
Author Name Unknown Organization [facility] Tray Adam nCoco [employer] [facility] Address [address], [address] [address]- Care Team Providers Care Bill Of Lading Clerk Name Role Phone Kristin Armas MD Primary Care Physician En[place] [facility] [place] Date(s): 03/12/22 - 04/11/22 [facility] [place] Farmer[facility] [address], [address] [place], [place] [address] Allergies, Adverse Reactions, Alerts [...] Given 1Admin Note: 3 of 3 Protocol [id number] 2Admin Note: 2 of 3 [facility] protocol [id number] 3Admin Note: 1 of 3 [facility] protocol [id number] 4Admin Note: #3 5Admin Note: #2 6Admin [...] 11:44:00 EDT, Aerosol, Route to Pharmacy Electronically, [id number], [facility], 157, cm, 01/28/22 11:34:00 [...] not crush or chew, # 30 tablet, 2 Refills, Maintenance, 03/12/22 16:28:00 EDT, ER Tablet, [facility], Partial fill upon patient request if the prescription is for a schedule II opioid drug., 157, cm, 0... Start Date: 03/12/22 Status: Ordered Omeprazole By Mouth, Daily, 0 [...] Team Personnel Name: Marlys Cobos RN Position: [facility] RN Member Role: Primary Care Nurse Name: Ekaterina Gold RN Position: [facility] RN Member Role: Primary Care Nurse Name: Tamy Edward Position: [facility] Outreach Member Role: Lifetime Consulting Physician Name: Kristin Amras MD Position: [facility] Physician (General Medicine) Member Role: PCP Address: Address: [address] [place], [place] [address] [address]- Care Team Related Persons Name: ANYI CORREIA Address: home [address] [place] [address] Name: RAVEN DOTSON Address: home [address] [place] [address] Name: MITCHELL HUANG Address: [place] [address] Name: TANESHA ALMEIDA Address: home [address] [place] [address]
--- OUTSIDE RECORDS SUMMARY | 2023-03-06 17:15 | XMS_ITS | Continuity of Care Document ---
Author Name Unknown Organization [facility] Tray Adam [facility] [employer] Address [address], [address] [place] [address]- Care Team Providers Care Drivers License Examiner Name Role Phone Kristin Armas MD Primary Care Physician [phone] En[place] [facility] [place] Date(s): 06/04/22 - 07/04/22 [facility] Trayjazz FarmerKnight [facility] [address], [address] [place], [place] [address] Allergies, Adverse Reactions, Alerts No Known Allergies [...] Given 1Admin Note: 3 of 3 Protocol [id number] 2Admin Note: 2 of 3 [facility] protocol [id number] 3Admin Note: 1 of 3 [facility] protocol [id number] 4Admin Note: #3 5Admin Note: #2 6Admin [...] 11:44:00 EDT, Aerosol, Route to Pharmacy Electronically, [id number], [facility], 157, cm, 01/28/22 11:34:00 [...] Mouth, Daily, Maintenance, 07/16/16 16:16:43 Start Date: 3/10/17 Status: Ordered prazosin 2 mg oral capsule [...] Team Personnel Name: Marlys Cobos RN Position: [facility] RN Member Role: Primary Care Nurse Name: Ekaterina Gold RN Position: [facility] RN Member Role: Primary Care Nurse Name: Tamy Edward Position: [facility] Outreach Member Role: Lifetime Consulting Physician Name: Kristin Armas MD Position: [facility] Physician (General Medicine) Member Role: PCP Address: Address: [address] [place], [place] [address], [place] [address]- Care Team Related Persons Name: ANYI CORREIA Address: home [address] [place] [address] Name: RAVEN DOTSON Address: home [address] [place] [address] Name: MITCHELL HUANG Address: [place] [address] Name: TANESHA ALMEIDA Address: home [address] [place] [address]
--- OUTSIDE RECORDS SUMMARY | 2023-03-06 17:15 | XMS_ITS | Continuity of Care Document ---
Author Name Unknown Organization [facility] Address [address] [place] [address], [address] [place] [address]- Care Team Providers Care Slinger Sequins Name Role Phone Meng REGALADO, So Olivo Primary Care Physician [phone] [place] [facility] [place] Date(s): 09/29/21 - 10/29/21 [facility] Tray Darianitzbigs [facility] [address], [address]th [place], [place] [address] Allergies, Adverse Reactions, Alerts No Known Allergies [...] Given 1Admin Note: 3 of 3 Protocol [id number] 2Admin Note: 2 of 3 [facility] protocol [id number] 3Admin Note: 1 of 3 [facility] protocol [id number] 4Admin Note: #3 5Admin Note: #2 6Admin [...] Dry Weight Start Date: 10/02/21 Status: Ordered Methadone Liquid mg, By Mouth, [...] 10 mg/24 hr oral tablet, extended release See Instructions, TAKE 3 TABLETS BY MOUTH DAILY, # 84 tablet, 5 Refills, 10/21/21 15:09:00 EDT, [facility], 157.48, cm, 11/11/20 6:51:00 EDT, Height, 68.3, kg, 11/11/20 6:51:00 EDT, Dry Weight Start Date: 10/21/21 Status: Ordered PARoxetine 20 mg oral tablet [...]
--- OUTSIDE RECORDS SUMMARY | 2023-03-06 17:15 | XMS_ITS | Continuity of Care Document ---
Author Name Unknown Organization [facility] Tray Adam n's [facility] Address [address], [address] [place] [address]- Care Team Providers Care Ct Scan Technician Name Role Phone Meng REGALADO, So Olivo Primary Care Physician [phone] [facility] [facility] [place]12[place]21 - 09[facility]11[facility] [address], [address] [place], [place] [address] Allergies, Adverse Reactions, Alerts No Known Allergies [...] Given 1Admin Note: 3 of 3 Protocol [id number] 2Admin Note: 2 of 3 [facility] protocol [id number] 3Admin Note: 1 of 3 [facility] protocol [id number] 4Admin Note: #3 5Admin Note: #2 6Admin [...] TABLETS BY MOUTH DAILY, # 84 tablet, 0 Refills, [facility], 157.48, cm, 11/11/20 6:51:00 EDT, Height, 68.3, kg, 11/11/20 6:51:00 EDT, Dry Weight Start Date: 08/12/21 Status: Ordered PARoxetine 20 mg oral tablet [...]
--- OUTSIDE RECORDS SUMMARY | 2023-03-06 17:15 | XMS_ITS | Continuity of Care Document ---
Author Name Unknown Organization [facility] Tray Adam nHALO [employer] [facility] Address [address], [address] [place] [address]- Care Team Providers Care Day Haul Youth Supervisor Name Role Phone Kristin Armas MD Primary Care Physician [place] [facility] [place]22 - 02/28/22 [facility] Trayjazz FarmerHALO [employer] [facility] [address], [address] [place], [place] [address] Allergies, Adverse Reactions, Alerts No [...] Given 1Admin Note: 3 of 3 Protocol [id number] 2Admin Note: 2 of 3 [facility] protocol [id number] 3Admin Note: 1 of 3 [facility] protocol [id number] 4Admin Note: #3 5Admin Note: #2 6Admin [...] 11:44:00 EDT, Aerosol, Route to Pharmacy Electronically, [id number], [facility], 157, cm, 01/28/22 11:34:00 [...] Sex Patient Care team information Personnel Name: Pawel REGALADO, Kristin Huffman Address: Address: [address] [place] [address]
--- OUTSIDE RECORDS SUMMARY | 2023-03-06 17:15 | XMS_ITS | Continuity of Care Document ---
Author Name Unknown Organization [facility]ray [facility] Address [address], [address] [place] [address]- Care Team Providers Care Equipment Oiler Name Role Phone Kristin Armas MD Primary Care Physician [phone] [place] [facility] - 03/10/22 [facility] [employer] [facility] [address] [place], [place] [address] Attending Physician: Jennifer Machuca Admitting Physician: AdmJennifer burton Referring Physician: AdmtrJennifer Allergies, Adverse Reactions, Alerts No Known Allergies [...] Given 1Admin Note: 3 of 3 Protocol [id number] 2Admin Note: 2 of 3 [facility] protocol [id number] 3Admin Note: 1 of 3 [facility] protocol [id number] 4Admin Note: #3 5Admin Note: #2 6Admin [...] 11:44:00 EDT, Aerosol, Route to Pharmacy Electronically, [id number], [facility], 157, cm, 01/28/22 11:34:00 [...] Personnel Name: Kristin Armas MD Address: Address: [address] [place] [id number]
--- OUTSIDE RECORDS SUMMARY | 2023-03-06 17:15 | XMS_ITS | Continuity of Care Document ---
Author Name Unknown Organization [facility] [employer] [facility] Address [address] [place] [address], [address] [place] [address]- Care Team Providers Care Content Designer Name Role Phone Meng REGALADO, So Olivo Primary Care Physician Encounter [facility] [place] Date(s): 10/21/21 - 11/20/21 [facility] [employer] [facility] [address] [place], [place] [address] Allergies, Adverse Reactions, Alerts No [...] Given 1Admin Note: 3 of 3 Protocol [id number] 2Admin Note: 2 of 3 [facility] protocol [id number] 3Admin Note: 1 of 3 [facility] protocol [id number] 4Admin Note: #3 5Admin Note: #2 6Admin [...]
--- OUTSIDE RECORDS SUMMARY | 2023-03-06 17:15 | XMS_ITS | Continuity of Care Document ---
Author Name Unknown Organization [facility] Address [address] [place] [address]- Care Team Providers Care Asset Protection Detective Name Role Phone Kristin Armas MD Primary Care Physician En[place] [facility] [place] Date(s): 01/26/22 - 02/25/[address] [address] Attending Physician: Jennifer Machuca Admitting Physician: Admtr, [id number] Referring Physician: Admtr, [id number] Allergies, Adverse Reactions, [...] Given 1Admin Note: 3 of 3 Protocol [id number] 2Admin Note: 2 of 3 [facility] protocol [id number] 3Admin Note: 1 of 3 [facility] protocol [id number] 4Admin Note: #3 5Admin Note: #2 6Admin [...] 11:44:00 EDT, Aerosol, Route to Pharmacy Electronically, [id number], [facility], 157, cm, 01/28/22 11:34:00 [...] Personnel Name: Kristin Armas MD Address: Address: [address] [place] [id number]
== END 2023-03-06 17:29 | disposition home or self-care (01) ==
LOC: HO.ED 17:12
PROVIDERS: Emergency Provider Internal Medicine; PCP Internal Medicine
DX: L02.01 Cutaneous abscess of face (principal); H57.13 Ocular pain, bilateral; F11.10 Opioid abuse, uncomplicated; Z79.899 Other long term (current) drug therapy
CPT/HCPCS: 36415; 80053; 83605; 85025; 85652; 86140; 87040; 87070; 87077; 87186; 87205; 99284

== ENCOUNTER 2023-06-22 13:12 | Emergency (ER) | payer OTHER, SELFPAY ==
[2023-06-22 13:16] VITALS: BP 118/80; PULSE 125; O2SAT 100
[2023-06-22 13:28] VITALS: BP 118/75; PULSE 118; RESP 18; TEMP 36.9; O2SAT 94; BMI 26.0
[2023-06-22 16:00] LABS: MANUAL DIFF FLAG NO
[2023-06-22 16:01] LABS: Basophils Percent Auto 0.4 % (0-2); Hematocrit 37.1 % (37.0-47.0); Hemoglobin 12.6 g/dl (12.0-16.0); Imm Gran Abs Auto 0.03 X10*3/uL (0.00-0.03); Imm Gran Pct Auto 0.4 % (0.0-0.4); Lymphocytes Absolute Auto 0.5 X10*3/uL (1.2-4.9); Lymphocytes Percent Auto 6.5 % (20-40); Mean Corpuscular Hemoglobin 28.5 pg (27.0-33.0); Mean Corpuscular Volume 83.9 fL (80.0-98.0); Mean Platelet Volume 9.8 fL (9.4-12.3); Monocytes Absolute Auto 0.4 X10*3/uL (0.1-1.2); Monocytes Percent Auto 4.4 % (2-11); Neutrophils Absolute Auto 7.2 x10*3/uL (2.0-8.3); Neutrophils Percent Auto 88.3 % (45-73); Platelet Count 213 X10*3/uL (160-400); Red Blood Count 4.42 X10*6/uL (4.20-5.50); Red Cell Distribution Width 13.1 % (11.0-16.0); White Blood Count 8.1 X10*3/uL (4.8-10.8)
[2023-06-22 16:15] LABS: Alanine Aminotransferase 13 U/L (0-31); Albumin Level 3.6 g/dL (3.5-5.0); Alkaline Phosphatase 59 U/L (39-117); Anion Gap 9 (12-20); Aspartate Amino Transferase 25 U/L (5-31); Bilirubin Total 0.3 mg/dL (0.0-1.0); Blood Urea Nitrogen 7 mg/dL (9-16); Calcium 9.3 mg/dL (8.4-10.2); Carbon Dioxide 28 mmol/L (22-29); Chloride 99 mmol/L (96-108); Creatinine Clr Calc Pharmacy 81.6; Estimated Glomerular Filt Rate > 60; Glucose Random 99 mg/dL (60-115); Sodium 133 mmol/L (135-145); Total Protein 8.3 g/dL (6.5-8.0)
== END 2023-06-22 19:17 | disposition left against medical advice (07) ==
LOC: HO.ED 18:15
PROVIDERS: Emergency Medicine; Emergency Provider Emergency Medicine
DX: L02.414 Cutaneous abscess of left upper limb (principal); L02.416 Cutaneous abscess of left lower limb; L02.415 Cutaneous abscess of right lower limb; L02.511 Cutaneous abscess of right hand; R00.0 Tachycardia, unspecified; J44.9 Chronic obstructive pulmonary disease, unspecified; R50.9 Fever, unspecified; R51.9 Headache, unspecified
CPT/HCPCS: 36415; 80053; 83605; 85025; 87040; 99281; 99283

== ENCOUNTER 2023-12-12 21:48 | Inpatient (IN) | payer MEDICARE, MEDICAID, SELFPAY ==
[2023-12-12 22:23] VITALS: BP 106/63; PULSE 113; RESP 16; TEMP 36.8; O2SAT 95; BMI 25.6
[2023-12-12 23:19] LABS: Basophils Percent Auto 0.6 % (0-2); Eosinophils Percent Auto 0.8 % (0-4); Hematocrit 33.2 % (37.0-47.0); Hemoglobin 11.3 g/dl (12.0-16.0); Imm Gran Abs Auto 0.01 X10*3/uL (0.00-0.03); Imm Gran Pct Auto 0.2 % (0.0-0.4); Lymphocytes Absolute Auto 0.6 X10*3/uL (1.2-4.9); Lymphocytes Percent Auto 11.5 % (20-40); MANUAL DIFF FLAG NO; Mean Corpuscular Volume 91.2 fL (80.0-98.0); Mean Platelet Volume 9.4 fL (9.4-12.3); Monocytes Absolute Auto 0.3 X10*3/uL (0.1-1.2); Monocytes Percent Auto 5.1 % (2-11); Neutrophils Percent Auto 81.8 % (45-73); Platelet Count 211 X10*3/uL (160-400); Red Blood Count 3.64 X10*6/uL (4.20-5.50); Red Cell Distribution Width 13.3 % (11.0-16.0); White Blood Count 4.9 X10*3/uL (4.8-10.8)
[2023-12-12 23:21] LABS: Appearance Urine Cloudy; Color Urine Dark Yellow; Glucose Urine UA Negative (Negative); Leukocyte Esterase Urine Small (1+) (Negative); Nitrite Urine Negative (Negative); PH 5.5 (5.0-9.0); Specific Gravity - Urine >= 1.030 (1.005-1.025); UMIC TRIGGER UACC YES; Urine Blood Negative (Negative); Urine Ketones 15 mg/dL (Negative); Urine Protein 100 (2+) mg/dL (Neg-Trace)
[2023-12-12 23:28] LABS: Bacteria Urine 1+ (None Seen); RBC Urine 0-2 /HPF (0-2); Squamous Epithelial Cell Urine >20 /HPF (0-2); UACC Culture Trigger YES; WBC Urine >50 /HPF (0-5)
[2023-12-12 23:32] LABS: Alanine Aminotransferase 13 U/L (0-31); Alkaline Phosphatase 66 U/L (39-117); Anion Gap 11 (12-20); Aspartate Amino Transferase 21 U/L (5-31); Bilirubin Direct 0.1 mg/dL (0.0-0.5); Bilirubin Total 0.3 mg/dL (0.0-1.0); Blood Urea Nitrogen 9 mg/dL (9-16); Calcium 9.2 mg/dL (8.4-10.2); Carbon Dioxide 26 mmol/L (22-29); Chloride 105 mmol/L (96-108); Estimated Glomerular Filt Rate > 60; Glucose Random 120 mg/dL (60-115); Lipase 17 U/L (8-78); Potassium 3.6 mmol/L (3.3-5.1); Sodium 138 mmol/L (135-145); Total Protein 7.6 g/dL (6.5-8.0)
--- NOTE | 2023-12-13 | ECG_ITS ---
Test Reason : check prolong QT Blood Pressure : / mmHG Vent. Rate : 105 BPM Atrial Rate : 105 BPM P-R Int : 162 ms QRS Dur : 078 ms QT Int : 376 ms P-R-T Axes : 068 059 060 degrees QTc Int : 496 ms Sinus tachycardia Otherwise normal ECG No previous ECGs available Referred By: Generic ED Physician Electronically Signed By:SUGEY CHAVEZ MD
[2023-12-13 01:13] VITALS: BP 115/71; PULSE 101; RESP 16; TEMP 36.7; O2SAT 96
--- NOTE | 2023-12-13 01:35 | ED_ITS ---
HPI - Abdominal Pain General Chief Complaint: Psychiatric Symptoms Stated Complaint: ? infection female origin Time Seen by Provider: 12/13/23 01:35 Source: patient Mode of arrival: ambulatory Limitations: no limitations History of Present Illness ED Provider: sarah JORGE narrative: Patient complaining of pain and dysuria when urinates for last 2 days also noticed small hole in the front of the urethra and pain in the rectum area patient is homeless no fever no chills no nausea no vomiting Related Data Home Medications ?Medication ?Instructions ?Recorded ?Confirmed albuterol sulfate 90 mcg/actuation 2 inh inhalation Q3-4H PRN Wheezing 12/13/23 12/13/23 aerosol inhaler (Ventolin HFA) diltiazem HCl 120 mg 120 mg PO DAILY 12/13/23 12/13/23 capsule,extended release 24 hr (Cartia XT) dolutegravir 50 mg tablet (Tivicay) 50 mg PO DAILY 12/13/23 12/13/23 emtricitabine 200 mg-tenofovir 1 tab PO DAILY 12/13/23 12/13/23 alafenamide fumarate 25 mg tablet (Descovy) metformin 500 mg tablet 500 mg PO DAILY 12/13/23 12/13/23 omeprazole 20 mg capsule,delayed 20 mg PO BIDAC 12/13/23 12/13/23 release prazosin 2 mg capsule 2 mg PO BEDTIME 12/13/23 12/13/23 trazodone 150 mg tablet 150 mg PO BEDTIME 12/13/23 12/13/23 Allergies Allergy/AdvReac Type Severity Reaction Status Date / Time acetaminophen [From TYLENOL] Allergy Unknown HIVES Verified 12/12/23 22:27 Review of Systems Review of Systems Yes all other systems are reviewed and are negative [facility] Social History Social History Alcohol intake: never Smoked in Last 30 Days: Yes Use of substances other than those prescribed or required for medical reasons: No Substance Use Type: Other Substance Use Frequency Other:: methadone Advance Directives: No Advance Directives Information Provided: Yes Physical Exam ED Vital Signs: Vital Signs - 24 hr 12/12/23 22:23 12/13/23 01:13 Temperature 98.2 F 98.0 F Pulse Rate 113 H 101 H Respiratory Rate 16 16 Blood Pressure 106/63 115/71 Pulse Oximetry 95 96 Oxygen Delivery Method Room Air Room Air BMI result Body Mass Index 25.6 Appearance: Alert. Oriented X3. No acute distress. Eyes: No pallor or icterus ENT: Pharynx normal. Oral Mucosa moist Neck: Normal inspection. Neck supple. CVS: Normal heart rate and rhythm. Pulses normal. Respiratory: No respiratory distress. Equal air entry bilateral, no wheezing/rales/rhonchi Abdomen: Soft and nontender. Bowel sounds are present, no mass palpable, no CVA tenderness no whole noticed in the private area small mucosal cyst swelling rash around the rectal area Skin: Skin warm and dry. Normal skin color. Normal skin turgor. Extremities: No lower extremity edema. No calf tenderness psych: Complaining of depression feeling suicidal with plan to jump in front of the car Neuro: Oriented X 3. No motor deficit. No sensory deficit.No cerebellar signs , cranial nerves II-XII intact Medical Decision Making Medical Decision Making [facility] Narrative: Patient is homeless with multiple complaints workup showed UTI and rash around the rectal area likely intertrigo when planning to discharge the patient patient is started complaining of psychiatric issues including anxiety and PTSD said that she depressed and suicidal will get the care team involved patient is medically cleared patient did use heroin was 3 days ago otherwise she was cleaned for last 4 months Differential Diagnosis Differential Diagnoses: The differential diagnosis associated with the presentation includes Lab Data [facility] Lab Attestation statement: I reviewed the patient's lab results. 12/12/23 23:12 12/12/23 23:12 Labs: Lab Results 12/12/23 Range/Units 23:12 WBC 4.9 (4.8-10.8) X10*3/uL RBC 3.64 L (4.20-5.50) X10*6/uL Hgb 11.3 L (12.0-16.0) g/dl Hct 33.2 L (37.0-47.0) % MCV 91.2 (80.0-98.0) fL MCH 31.0 (27.0-33.0) pg MCHC 34.0 (31.0-35.0) g/dl RDW 13.3 (11.0-16.0) % Plt Count 211 (160-400) X10*3/uL MPV 9.4 (9.4-12.3) fL Immature Gran % (Auto) 0.2 (0.0-0.4) % Neut % (Auto) 81.8 H (45-73) % Lymph % (Auto) 11.5 L (20-40) % [place] % (Auto) 5.1 (2-11) % Eos % (Auto) 0.8 (0-4) % Baso % (Auto) 0.6 (0-2) % Lymph # (Auto) 0.6 L (1.2-4.9) X10*3/uL [place] # (Auto) 0.3 (0.1-1.2) X10*3/uL Eos # (Auto) 0.0 (0.0-0.4) X10*3/uL Baso # (Auto) 0.0 (0.0-0.2) X10*3/uL Abs Immat Gran (auto) 0.01 (0.00-0.03) X10*3/uL Absolute Neuts (auto) 4.0 (2.0-8.3) x10*3/uL Absolute Nucleated RBC 0.000 (0.0-0.012) X10*3/uL Nucleated RBC % (auto) 0.0 (0.0-0.2) /100WBC Sodium 138 (135-145) mmol/L Potassium 3.6 (3.3-5.1) mmol/L Chloride 105 (96-108) mmol/L Carbon Dioxide 26 (22-29) mmol/L Anion Gap 11 L (12-20) BUN 9 (9-16) mg/dL Creatinine 0.86 (0.5-1.4) mg/dL Estim Creat Clear Calc 67.0 Estimated GFR > 60 Random Glucose 120 H (60-115) mg/dL Calcium 9.2 (8.4-10.2) mg/dL Total Bilirubin 0.3 (0.0-1.0) mg/dL Direct Bilirubin 0.1 (0.0-0.5) mg/dL AST 21 (5-31) U/L ALT 13 (0-31) U/L Alkaline Phosphatase 66 (39-117) U/L Total Protein 7.6 (6.5-8.0) g/dL Albumin 4.0 (3.5-5.0) g/dL Lipase 17 (8-78) U/L Urine Color Dark Yellow Urine Appearance Cloudy Urine pH 5.5 (5.0-9.0) Ur Specific [place] >= 1.030 H (1.005-1.025) Urine Protein 100 (2+) H (Neg-Trace) mg/dL Urine Glucose (UA) Negative (Negative) mg/dL Urine Ketones 15 (Negative) mg/dL Urine Blood Negative (Negative) Urine Nitrite Negative (Negative) Ur Leukocyte Esterase Small (1+) H (Negative) Urine RBC 0-2 (0-2) /HPF Urine WBC >50 H (0-5) /HPF Ur Squamous Epith Cells >20 (0-2) /HPF Urine Bacteria 1+ (None Seen) Hyaline Casts 6-10 (0-2) /LPF Urine Opiates Screen POSITIVE H (Not Detect) Ur Buprenorphine Scrn Not Detected (Not Detect) ng/mL Ur Oxycodone Screen Not Detected (Not Detect) ng/mL Urine Methadone Screen Positive H (Not Detect) ng/mL Urine Fentanyl Screen POSITIVE H (Not Detect) Ur Barbiturates Screen Not Detected (Not Detect) Ur Phencyclidine Scrn Not Detected (Not Detect) Ur Amphetamines Screen Not Detected (Not Detect) U Benzodiazepines Scrn Not Detected (Not Detect) Urine Cocaine Screen POSITIVE H (Not Detect) U Marijuana (THC) Screen POSITIVE H (Not Detect) Medications Administered Discontinued Medications Generic Name Dose Route Start Last Admin Trade Name Freq PRN Reason Stop Dose Admin Cefuroxime Axetil 250 mg 12/13/23 01:36 12/13/23 01:55 Cefuroxime Axetil 250 Mg Tablet PO 12/13/23 01:37 250 mg ONCE ONE Administration Discharge Plan Discharge Clinical Impression: Depression, Suicidal ideation, UTI (urinary tract infection) Patient Disposition: Still a Patient Prescriptions: No Action albuterol sulfate [Ventolin HFA] 90 mcg/actuation HFA aerosol inhaler 2 inh INHALATION Q3-4H PRN (Reason: Wheezing) prazosin 2 mg capsule 2 mg PO BEDTIME trazodone 150 mg tablet 150 mg PO BEDTIME metformin 500 mg tablet 500 mg PO DAILY omeprazole 20 mg capsule,delayed release(DR/EC) 20 mg PO BIDAC Descovy 200-25 mg tablet 1 tab PO DAILY diltiazem HCl [Cartia XT] 120 mg capsule,extended release 24hr 120 mg PO DAILY Tivicay 50 mg tablet 50 mg PO DAILY Interventions: [place]-Suicide Risk Severity Scale Last Done: 12/13/23 03:39 Print Language: Ukrainian
[2023-12-13] MEDS: cefuroxime axetiL 250 MG TABLET PO ×3 (01:55→21:18)
[2023-12-13 02:51] LABS: Amphetamine Screen Urine Not Detected (Not Detect); Barbiturates, Urine Not Detected (Not Detect); Benzodiazepines Screen Urine Not Detected (Not Detect); Buprenorphine Scr Not Detected (Not Detect); Cannabinoid Screen Urine POSITIVE (Not Detect); Cocaine Screen Urine POSITIVE (Not Detect); Fentanyl, urine POSITIVE (Not Detect); Methadone Screen, Urine Positive (Not Detect); Opiate Screen Urine POSITIVE (Not Detect); Oxycodone Screen Urine Not Detected (Not Detect); Phencyclidine Screen Urine Not Detected (Not Detect)
--- NOTE | 2023-12-13 03:38 | PC.NURSE ---
t/w attempted to complete med rec and client repeatedly refused to answer questions, appears volitional. patient did state she last took medications evening of 12/12/23.
--- NOTE | 2023-12-13 07:10 | PC.NURSE ---
Assumed care of patient at 0645. Patient is observed resting quietly in their bed. No distress observed, breathing is even and unlabored.
[2023-12-13] MEDS: dilTIAZem HCL CD 120 MG CAP.ER.DEG PO (10:05)
[2023-12-13] MEDS: metFORMIN HCl 500 MG TABLET PO (10:05)
[2023-12-13 14:51] VITALS: BP 128/75; PULSE 106; TEMP 36.1; O2SAT 97
--- NOTE | 2023-12-13 15:17 | PC.NURSE ---
Called [facility] [phone] and spoke with Kym MCCALL who verified pt's last methadone dose was 58mg 12/08/23 at 0944.
[2023-12-13] MEDS: Dolutegravir Sodium 50 MG TABLET PO (15:39)
--- NOTE | 2023-12-13 15:48 | HO.PSYADMNOT ---
HPI Date of Service: 12/13/23 Chief Complaint: crisis Sources of Information: patient interviewed, chart reviewed and crisis/core team assessment reviewed HPI Subjective Notes: Gooden Warning and Conditional Voluntary Narrative: Patient is a 53 year old female with hx of MDD, PTSD, cocaine use d/o and opioid use d/o who self presented to [facility] ER d/t suicidal ideation secondary to life stressors. Per crisis report, pt reported suicidal ideation with plan to OD on heroin or be hit by a truck. Pt reported she was evicted from her home yesterday and is now homeless. She reported being in mourning from the loss of her mother who in February 2023 and overwhelmed by using substances after being sober for 4 months. hx of multiple suicide attempts; hanging and overdose and putting a gun to her head before someone took it away; dates are unclear. 2 prior inpatient psychiatric hospitalizations( [facility] and [facility]). UTOX positive for cocaine, opiates, methadone, fentanyl, marijauna. During admission assessment, pt presents alert and oriented x3, calm, cooperative. Pt reports feeling anxious and depressed ; pt stated, I've been suicidal since June when my fiance of pneumonia. We were together for 12 years. I'm also depressed because I was evicted from my apartment because my room mate was selling drugs. I was in [facility] for four months because of it and didn't want to leave because they treat you well . Pt reports she has been staying with a friend since being released from the correctional facility a week ago. Pt reports suicidal ideation to overdose; pt stated, I miss my man and my mom . Pt denies HI/VH/AH. She reports using cocaine, heroin and marijuana over the past week. Pt reports she does not have outpatient psychiatric providers but would like referrals. Past Psychiatric History: hx of multiple suicide attempts; hanging and overdose and putting a gun to her head before someone took it away; dates are unclear. 2 prior inpatient psychiatric hospitalizations( [facility] and [facility]). denies outpatient psychiatric providers. Medical Evaluation Reviewed: Yes [facility] Family History: grandmother-depression aunt-depression Social History: Homeless, single, 36 y/o son (no contact), disability. Substance History: cocaine, opiates, marijuana. Trauma History: yes Diagnostics Vital Signs (24Hr): Vital Signs - 24 hr 12/12/23 22:23 12/13/23 01:13 Temperature 98.2 F 98.0 F Pulse Rate 113 H 101 H Respiratory Rate 16 16 Blood Pressure 106/63 115/71 Pulse Oximetry 95 96 Oxygen Delivery Method Room Air Room Air BMI result Body Mass Index 25.6 Labs 12/12/23 23:12 12/12/23 23:12 Labs: Laboratory Results - last 48 hr 12/12/23 23:12 WBC 4.9 RBC 3.64 L Hgb 11.3 L Hct 33.2 L MCV 91.2 MCH 31.0 MCHC 34.0 RDW 13.3 Plt Count 211 MPV 9.4 Immature Gran % (Auto) 0.2 Neut % (Auto) 81.8 H Lymph % (Auto) 11.5 L [place] % (Auto) 5.1 Eos % (Auto) 0.8 Baso % (Auto) 0.6 Lymph # (Auto) 0.6 L [place] # (Auto) 0.3 Eos # (Auto) 0.0 Baso # (Auto) 0.0 Abs Immat Gran (auto) 0.01 Absolute Neuts (auto) 4.0 Absolute Nucleated RBC 0.000 Nucleated RBC % (auto) 0.0 Sodium 138 Potassium 3.6 Chloride 105 Carbon Dioxide 26 Anion Gap 11 L BUN 9 Creatinine 0.86 Estim Creat Clear Calc 67.0 Estimated GFR > 60 Random Glucose 120 H Calcium 9.2 Total Bilirubin 0.3 Direct Bilirubin 0.1 AST 21 ALT 13 Alkaline Phosphatase 66 Total Protein 7.6 Albumin 4.0 Lipase 17 Urine Color Dark Yellow Urine Appearance Cloudy Urine pH 5.5 Ur Specific [place] >= 1.030 H Urine Protein 100 (2+) H Urine Glucose (UA) Negative Urine Ketones 15 Urine Blood Negative Urine Nitrite Negative Ur Leukocyte Esterase Small (1+) H Urine RBC 0-2 Urine WBC >50 H Ur Squamous Epith Cells >20 Urine Bacteria 1+ Hyaline Casts 6-10 Urine Opiates Screen POSITIVE H Ur Buprenorphine Scrn Not Detected Ur Oxycodone Screen Not Detected Urine Methadone Screen Positive H Urine Fentanyl Screen POSITIVE H Ur Barbiturates Screen Not Detected Ur Phencyclidine Scrn Not Detected Ur Amphetamines Screen Not Detected U Benzodiazepines Scrn Not Detected Urine Cocaine Screen POSITIVE H U Marijuana (THC) Screen POSITIVE H Meds/Allergies Meds Home Medications ?Medication ?Instructions ?Recorded ?Confirmed ?Type albuterol sulfate 90 mcg/actuation 2 inh inhalation Q3-4H PRN Wheezing 12/13/23 12/13/23 History aerosol inhaler (Ventolin HFA) diltiazem HCl 120 mg 120 mg PO DAILY 12/13/23 12/13/23 History capsule,extended release 24 hr (Cartia XT) dolutegravir 50 mg tablet (Tivicay) 50 mg PO DAILY 12/13/23 12/13/23 History emtricitabine 200 mg-tenofovir 1 tab PO DAILY 12/13/23 12/13/23 History alafenamide fumarate 25 mg tablet (Descovy) metformin 500 mg tablet 500 mg PO DAILY 12/13/23 12/13/23 History omeprazole 20 mg capsule,delayed 20 mg PO BIDAC@0630,1630 12/13/23 12/13/23 History release prazosin 2 mg capsule 2 mg PO BEDTIME 12/13/23 12/13/23 History trazodone 150 mg tablet 150 mg PO BEDTIME 12/13/23 12/13/23 History Allergies Allergies Allergy/AdvReac Type Severity Reaction Status Date / Time acetaminophen [From TYLENOL] Allergy Unknown HIVES Verified 12/12/23 22:27 Mental Status Exam Mental Status Exam Narrative: Pt is alert and oriented; behavior is cooperative and calm; dressed in casual attire; mood is described as depressed ; eye contact appropriate; Speech is normal rate, volume and not pressured; thought process is organized and goal directed; Thought content is on tx; otherwise pertinent to relevant topics and without any delusional content, paranoid ideations or grandiosity; denies HI/VH/AH. Pt reports suicidal ideation. Assessment & Plan Assessment & Plan (1) MDD (major depressive disorder), recurrent episode: Status: Acute Code(s): F33.9 - Major depressive disorder, recurrent, unspecified (2) PTSD (post-traumatic stress disorder): Status: Acute Code(s): F43.10 - Post-traumatic stress disorder, unspecified (3) Opioid use disorder: Status: Acute Code(s): F11.90 - Opioid use, unspecified, uncomplicated (4) Cocaine use disorder: Status: Acute Code(s): F14.10 - Cocaine abuse, uncomplicated Plan Patient is a 53 year old female with hx of MDD, PTSD, cocaine use d/o and opioid use d/o who self presented to [facility] ER d/t suicidal ideation secondary to life stressors. Plan: CV 15 minute safety checks Continue home medications PT consult: pt reports she uses cane to ambulate referral to outpatient therapist and prescriber encourage groups discharge planning Patient educated on: diagnosis, medication risk/benefits, substance abuse and therapeutic strategies Informed Consent: understands Reason for continued inpatient stay Substantial Risk for: harm to self and med/psych decompensation Statement Statement: I have reviewed the history and physical and performed a pertinent examination on my patient. No changes have occurred unless specified. If the History and Physical was not performed prior to admission, the Hospitalist's service will be consulted for completing the admission physical. Time Spent With Patient Time: Total time managing care of this patient today _60___ minutes.
--- NOTE | 2023-12-13 16:26 | PC.ADMIT ---
Lesa is a 53-year-old female admitted from [facility] Pod to M3 on a CV for treatment of unspecified depressive disorder and opiate use disorder. Tox screen positive for opiates, methadone, fentanyl, cocaine, and cannabis. Pt is on 58mg methadone, last dose 12/08/23 0944, pt reported she was unable to walk to the clinic which is why she missed several doses. Per crisis evaL, pt initially presented to ED with c/o UTI and rash around rectal area. Prior to being discharged from the ED, pt c/o psychiatric symptoms including anxiety, PTSD, depression, and used heroin 3 days ago after being sober for 4 months. Pt was evicted from from her apartment and became homeless yesterday. Upon arrival to the unit, pt was alert, oriented, pleasant and cooperative. Pt reported difficulty walking due to needing a right hip replacement, pt was utilizing a walker in the pod to assist with ambulation. Pt had bruises on her buttocks from falling 3 times prior to admission. Pt has a reddened scabbed area on right thigh and closed blister on bottom of right toe, no s/sx infection. Pt's mood is depressed with congruent affect. Thought process is linear and organized. Pt currently denies SI/HI but will reach out to staff if thoughts occur, pt placed on 15 minute safety checks. During inventory of pt's belongings, a crack pipe and needles were found in pt's purse, clinical coordinator and security notified, black purse was brought to security in [place].
[2023-12-13] MEDS: methADONE HCl 20 MG/2 ML ORAL.CONC 58 MG PO (16:52)
[2023-12-13 17:45] VITALS: BMI 27.9
[2023-12-13] MEDS: Omeprazole 20 MG CAPSULE.DR PO (18:03)
--- NOTE | 2023-12-13 18:17 | PC.NURSE ---
During inventory, staff found several needles, a crack pipe and drug paraphernalia in pt's black purse. Pt's black purse given to Rea in security to place in [facility] at 12/13/23 at 1815.
--- NOTE | 2023-12-13 19:06 | PHA.MEDREC ---
Addendum entered by Russ Negron RPh 12/13/23 19:21: RPfredo reviewed Original Note: Pharmacy Consult ? Medication Reconciliation Pharmacy has completed the medication reconciliation. Pharmacy has reviewed med rec done by nursing.
[2023-12-13 21:03] LABS: Glucose, Whole Blood 113 mg/dL (60-115)
[2023-12-13 21:10] VITALS: BP 118/75; PULSE 100; RESP 16; TEMP 36.3; O2SAT 95
[2023-12-13 21:17] VITALS: BP 118/75
[2023-12-13] MEDS: Prazosin HCL 1 MG CAPSULE 2 MG PO (21:17)
[2023-12-13] MEDS: traZODone HCL 50 MG TABLET 150 MG PO (21:18)
[2023-12-14 07:47] VITALS: BP 132/77; PULSE 101; RESP 16; TEMP 36.4; O2SAT 95
[2023-12-14] MEDS: methADONE HCl 20 MG/2 ML ORAL.CONC 58 MG PO (07:54)
[2023-12-14 08:27] LABS: Glucose, Whole Blood 144 mg/dL (60-115)
[2023-12-14] MEDS: Dolutegravir Sodium 50 MG TABLET PO (08:45)
[2023-12-14] MEDS: dilTIAZem HCL CD 120 MG CAP.ER.DEG PO (08:45)
[2023-12-14] MEDS: Nicotine 21 MG PATCH.TD24 TRANSDERMA (08:46)
[2023-12-14] MEDS: cefuroxime axetiL 250 MG TABLET PO ×2 (08:46→21:50)
[2023-12-14] MEDS: Omeprazole 20 MG CAPSULE.DR PO ×2 (08:46→17:30)
[2023-12-14] MEDS: metFORMIN HCl 500 MG TABLET PO (09:19)
--- NOTE | 2023-12-14 09:29 | P.PNPSI_ITS ---
Subjective Subjective Date of Service: 12/14/23 Reason For Visit: crisis Subjective Notes: Conditional Voluntary Interim History: Reviewed with Dr. Dozier. Keeping to self. In bed most of the morning. Pt continues to report depression and anxious today; pt stated, I'm not having any withdrawal symptoms and I slept okay. I'm going to try to go to groups . Pt denies SI/HI/VH/AH. Pt reports taking Wellbutrin in the past with positive effect. Start: Wellbutrin XL 150mg PO daily clonidine 0.1mg PO BID Decrease Trazodone to 100mg PO bedtime Medication Compliance: Yes Side effects from medications: No Attending Groups: No Review of Systems Constitutional: Reports as per HPI Eyes: Reports as per HPI Reports as per HPI Cardiovascular: Reports as per HPI Respiratory: Reports as per HPI Gastrointestinal: Reports as per HPI Genitourinary: Reports as per HPI Musculoskeletal: Reports as per HPI Skin/Breast: Reports as per HPI Reports as per HPI Psychiatric: Reports as per HPI Endocrine: Reports as per HPI Hematologic/Lymphatic: Reports as per HPI Allergic/Immunologic: Reports as per HPI Mental Status Exam Mental Status Exam Narrative: Pt is alert and oriented; behavior is cooperative and calm; dressed in casual attire; mood is described as depressed ; eye contact appropriate; Speech is normal rate, volume and not pressured; thought process is organized and goal directed; Thought content is on tx; otherwise pertinent to relevant topics and without any delusional content, paranoid ideations or grandiosity; denies SI/HI/VH/AH. Diagnostics Vital Signs (24Hr): Vital Signs - 24 hr 12/13/23 14:51 12/13/23 21:10 12/13/23 21:17 Temperature 97 F 97.3 F Pulse Rate 106 H 100 Respiratory Rate 16 Blood Pressure 128/75 118/75 118/75 Pulse Oximetry 97 95 Oxygen Delivery Method Room Air Room Air 12/14/23 07:47 Temperature 97.5 F Pulse Rate 101 H Respiratory Rate 16 Blood Pressure 132/77 Pulse Oximetry 95 Oxygen Delivery Method Room Air BMI result Body Mass Index 27.9 Labs 12/12/23 23:12 12/14/23 08:20 Labs: Laboratory Results - last 48 hr 12/12/23 12/13/23 12/14/23 23:12 20:59 08:21 WBC 4.9 RBC 3.64 L Hgb 11.3 L Hct 33.2 L MCV 91.2 MCH 31.0 MCHC 34.0 RDW 13.3 Plt Count 211 MPV 9.4 Immature Gran % (Auto) 0.2 Neut % (Auto) 81.8 H Lymph % (Auto) 11.5 L [place] % (Auto) 5.1 Eos % (Auto) 0.8 Baso % (Auto) 0.6 Lymph # (Auto) 0.6 L [place] # (Auto) 0.3 Eos # (Auto) 0.0 Baso # (Auto) 0.0 Abs Immat Gran (auto) 0.01 Absolute Neuts (auto) 4.0 Absolute Nucleated RBC 0.000 Nucleated RBC % (auto) 0.0 Sodium 138 Potassium 3.6 Chloride 105 Carbon Dioxide 26 Anion Gap 11 L BUN 9 Creatinine 0.86 Estim Creat Clear Calc 67.0 Estimated GFR > 60 POC Glucose 113 144 H Random Glucose 120 H Calcium 9.2 Total Bilirubin 0.3 Direct Bilirubin 0.1 AST 21 ALT 13 Alkaline Phosphatase 66 Total Protein 7.6 Albumin 4.0 Lipase 17 Urine Color Dark Yellow Urine Appearance Cloudy Urine pH 5.5 Ur Specific [place] >= 1.030 H Urine Protein 100 (2+) H Urine Glucose (UA) Negative Urine Ketones 15 Urine Blood Negative Urine Nitrite Negative Ur Leukocyte Esterase Small (1+) H Urine RBC 0-2 Urine WBC >50 H Ur Squamous Epith Cells >20 Urine Bacteria 1+ Hyaline Casts 6-10 Urine Opiates Screen POSITIVE H Ur Buprenorphine Scrn Not Detected Ur Oxycodone Screen Not Detected Urine Methadone Screen Positive H Urine Fentanyl Screen POSITIVE H Ur Barbiturates Screen Not Detected Ur Phencyclidine Scrn Not Detected Ur Amphetamines Screen Not Detected U Benzodiazepines Scrn Not Detected Urine Cocaine Screen POSITIVE H U Marijuana (THC) Screen POSITIVE H Medications Medications Current Medications Al Hydroxide/Mg Hydroxide (Magnesium Hydrox/Alum Hydrox 30 Ml Oral.Susp) 30 ml PO Q6H PRN PRN Reason: Heartburn/Nausea Albuterol Sulfate (Albuterol Sulfate 90 Mcg 8 Gm Inhaler) 2 puff INHALE Q3H PRN PRN Reason: Wheezing Cefuroxime Axetil (Cefuroxime Axetil 250 Mg Tablet) 250 mg PO BID BRE[facility] Stop: 12/17/23 21:00 Last Admin: 12/14/23 08:46 Dose: 250 mg Diltiazem HCl (Diltiazem Hcl Cd 120 Mg Cap.Er.Deg) 120 mg PO DAILY [facility]; Protocol Last Admin: 12/14/23 08:45 Dose: 120 mg Dolutegravir Sodium (Dolutegravir Sodium 50 Mg Tablet) 50 mg PO DAILY [facility] Last Admin: 12/14/23 08:45 Dose: 50 mg Emtricitabine/Tenofovir Alafenamide (Emtricitabine/Tenofov Alafenam Tablet) 1 tab PO DAILY [facility] Last Admin: 12/14/23 08:47 Dose: Not Given Hydroxyzine HCl (Hydroxyzine Hcl 25 Mg Tablet) 25 mg PO Q6H PRN PRN Reason: Anxiety Ibuprofen (Ibuprofen 400 Mg Tablet) 400 mg PO Q6H PRN PRN Reason: Pain, Moderate(Pain Scale 4-6) Magnesium Hydroxide (Milk Of Magnesia 30 Ml Oral.Susp) 30 ml PO DAILY PRN PRN Reason: Constipation Metformin HCl (Metformin Hcl 500 Mg Tablet) 500 mg PO DAILY [facility] Last Admin: 12/14/23 09:19 Dose: 500 mg Methadone HCl (Methadone Hcl 20 Mg/2 Ml Oral.Conc) 58 mg PO DAILY [facility] Last Admin: 12/14/23 07:54 Dose: 58 mg Nicotine (Nicotine 21 Mg Patch.Td24) 21 mg TRANSDERMA DAILY [facility] Last Admin: 12/14/23 08:46 Dose: 21 mg Nicotine Polacrilex (Nicotine Polacrilex 2 Mg Gum) 4 mg BUCCAL Q2H PRN PRN Reason: Nicotine Cravings Omeprazole (Omeprazole 20 Mg Capsule.Dr) 20 mg PO BID@0630,1830 [facility] Last Admin: 12/14/23 08:46 Dose: 20 mg Prazosin HCl (Prazosin Hcl 1 Mg Capsule) 2 mg PO BEDTIME [facility]; Protocol Last Admin: 12/13/23 21:17 Dose: 2 mg Trazodone HCl (Trazodone Hcl 50 Mg Tablet) 150 mg PO BEDTIME [facility] Last Admin: 12/13/23 21:18 Dose: 150 mg Allergies Allergies Allergy/AdvReac Type Severity Reaction Status Date / Time acetaminophen [From TYLENOL] Allergy Unknown HIVES Verified 12/12/23 22:27 Assessment & Plan Assessment & Plan (1) MDD (major depressive disorder), recurrent episode: Status: Acute Code(s): F33.9 - Major depressive disorder, recurrent, unspecified (2) PTSD (post-traumatic stress disorder): Status: Acute Code(s): F43.10 - Post-traumatic stress disorder, unspecified (3) Opioid use disorder: Status: Acute Code(s): F11.90 - Opioid use, unspecified, uncomplicated (4) Cocaine use disorder: Status: Acute Code(s): F14.10 - Cocaine abuse, uncomplicated Plan Patient is a 53 year old female with hx of MDD, PTSD, cocaine use d/o and opioid use d/o who self presented [place] [facility] d/t suicidal ideation secondary to life stressors. Plan: CV 15 minute safety checks Continue home medications PT consult: pt reports she uses cane to ambulate referral to outpatient therapist and prescriber encourage groups discharge planning 12/13: Keeping to self. In bed most of the morning. Pt continues to report depression and anxious today; pt stated, I'm not having any withdrawal symptoms and I slept okay. I'm going to try to go to groups . Pt denies SI/HI/VH/AH. Pt reports taking Wellbutrin in the past with positive effect. Start: Wellbutrin XL 150mg PO daily clonidine 0.1mg PO BID Decrease Trazodone to 100mg PO bedtime Patient educated on: diagnosis, medication risk/benefits, substance abuse and therapeutic strategies Informed Consent: understands Reason for continued inpatient stay Substantial Risk for: med/psych decompensation Time Spent With Patient Time: Total time managing care of this patient today _20___ minutes.
[2023-12-14 10:45] LABS: Alanine Aminotransferase 7 U/L (0-31); Albumin Level 3.5 g/dL (3.5-5.0); Alkaline Phosphatase 56 U/L (39-117); Anion Gap 11 (12-20); Aspartate Amino Transferase 16 U/L (5-31); Bilirubin Total 0.2 mg/dL (0.0-1.0); Blood Urea Nitrogen 9 mg/dL (9-16); Carbon Dioxide 28 mmol/L (22-29); Chloride 107 mmol/L (96-108); Cholesterol 149 mg/dL (<200); Creatinine Clr Calc Pharmacy 74.9; Estimated Glomerular Filt Rate > 60; Glucose Fasting 133 mg/dL (60-99); HDL Cholesterol 48 mg/dL (>40); LDL Cholesterol Calculated 85 mg/dL (<100); Potassium 3.1 mmol/L (3.3-5.1); Sodium 143 mmol/L (135-145); Total Protein 6.8 g/dL (6.5-8.0); Triglycerides 82 mg/dL (<150)
[2023-12-14 17:16] VITALS: BP 133/73; PULSE 99; RESP 16; TEMP 35.7
[2023-12-14] MEDS: buPROPion HCl XL 150 MG TAB.ER.24H PO (17:20)
[2023-12-14] MEDS: Ibuprofen 400 MG TABLET PO (17:27)
[2023-12-14] MEDS: cloNIDine HCL 0.1 MG TABLET PO ×2 (17:29→21:50)
[2023-12-14] MEDS: Benzocaine 20 % Oral Gel 9 GM TUBE 1 APPL MUCOUS MEM (18:16)
[2023-12-14 21:04] VITALS: BP 123/70; PULSE 85; RESP 14; TEMP 36.9; O2SAT 97
[2023-12-14] MEDS: traZODone HCL 100 MG TABLET PO (21:50)
[2023-12-14] MEDS: Prazosin HCL 1 MG CAPSULE 2 MG PO (21:51)
[2023-12-15] MEDS: Omeprazole 20 MG CAPSULE.DR PO ×2 (06:55→18:57)
[2023-12-15 07:00] VITALS: BMI 28.0
[2023-12-15 07:46] VITALS: BP 125/59; PULSE 87; RESP 16; TEMP 36.1; O2SAT 96
[2023-12-15] MEDS: methADONE HCl 20 MG/2 ML ORAL.CONC 58 MG PO (08:05)
[2023-12-15 08:59] LABS: Glucose, Whole Blood 120 mg/dL (60-115)
[2023-12-15] MEDS: cloNIDine HCL 0.1 MG TABLET PO ×2 (09:05→22:37)
[2023-12-15] MEDS: buPROPion HCl XL 150 MG TAB.ER.24H PO (09:05)
[2023-12-15] MEDS: cefuroxime axetiL 250 MG TABLET PO ×2 (09:05→22:37)
[2023-12-15] MEDS: Dolutegravir Sodium 50 MG TABLET PO (09:05)
[2023-12-15] MEDS: Emtricitabine/Tenofov Alafenam TABLET 1 TAB PO (09:05)
[2023-12-15] MEDS: metFORMIN HCl 500 MG TABLET PO (09:05)
[2023-12-15] MEDS: dilTIAZem HCL CD 120 MG CAP.ER.DEG PO (09:05)
[2023-12-15] MEDS: Nicotine 21 MG PATCH.TD24 TRANSDERMA (09:05)
[2023-12-15] MEDS: Ibuprofen 400 MG TABLET PO ×2 (09:14→18:56)
[2023-12-15] MEDS: Benzocaine 20 % Oral Gel 9 GM TUBE 1 APPL MUCOUS MEM ×2 (09:15→18:57)
--- NOTE | 2023-12-15 09:15 | P.PNPSI_ITS ---
Subjective Subjective Date of Service: 12/15/23 Reason For Visit: crisis Subjective Notes: Conditional Voluntary Interim History: Reviewed with Dr. Dozier. Pt continues to report depression and anxious today; she reports sleeping well. Pt stated, I'm going to try to get up and shower then go to groups today . Pt denies SI/HI/VH/AH. Medication Compliance: Yes Side effects from medications: No Attending Groups: No Review of Systems Constitutional: Reports as per HPI Eyes: Reports as per HPI Reports as per HPI Cardiovascular: Reports as per HPI Respiratory: Reports as per HPI Gastrointestinal: Reports as per HPI Musculoskeletal: Reports as per HPI Skin/Breast: Reports as per HPI Reports as per HPI Psychiatric: Reports as per HPI Endocrine: Reports as per HPI Hematologic/Lymphatic: Reports as per HPI Allergic/Immunologic: Reports as per HPI Mental Status Exam Mental Status Exam Narrative: Pt is alert and oriented; behavior is cooperative and calm; dressed in casual attire; mood is described as depressed ; eye contact appropriate; Speech is normal rate, volume and not pressured; thought process is organized and goal directed; Thought content is on tx; otherwise pertinent to relevant topics and without any delusional content, paranoid ideations or grandiosity; denies SI/HI/VH/AH. Diagnostics Vital Signs (24Hr): Vital Signs - 24 hr 12/14/23 17:16 12/14/23 21:04 12/15/23 07:46 Temperature 96.2 F L 98.4 F 96.9 F Pulse Rate 99 85 87 Respiratory Rate 16 14 16 Blood Pressure 133/73 123/70 125/59 L Pulse Oximetry 97 96 Oxygen Delivery Method Room Air Room Air BMI result Body Mass Index 27.9 Labs 12/12/23 23:12 12/14/23 08:20 Labs: Laboratory Results - last 48 hr 12/13/23 12/14/23 12/14/23 20:59 08:20 08:21 Sodium 143 Potassium 3.1 L Chloride 107 Carbon Dioxide 28 Anion Gap 11 L BUN 9 Creatinine 0.80 Estim Creat Clear Calc 74.9 Estimated GFR > 60 POC Glucose 113 144 H Fasting Glucose 133 H Calcium 9.0 Total Bilirubin 0.2 AST 16 ALT 7 Alkaline Phosphatase 56 Total Protein 6.8 Albumin 3.5 Triglycerides 82 Cholesterol 149 LDL Cholesterol, Calc 85 HDL Cholesterol 48 12/15/23 08:54 Sodium Potassium Chloride Carbon Dioxide Anion Gap BUN Creatinine Estim Creat Clear Calc Estimated GFR POC Glucose 120 H Fasting Glucose Calcium Total Bilirubin AST ALT Alkaline Phosphatase Total Protein Albumin Triglycerides Cholesterol LDL Cholesterol, Calc HDL Cholesterol Medications Medications Current Medications Al Hydroxide/Mg Hydroxide (Magnesium Hydrox/Alum Hydrox 30 Ml Oral.Susp) 30 ml PO Q6H PRN PRN Reason: Heartburn/Nausea Albuterol Sulfate (Albuterol Sulfate 90 Mcg 8 Gm Inhaler) 2 puff INHALE Q3H PRN PRN Reason: Wheezing Benzocaine (Benzocaine 20 % Oral Gel 9 Gm Tube) 1 appl MUCOUS MEM QID PRN; Protocol PRN Reason: mucous membrane pain Last Admin: 12/15/23 09:15 Dose: 1 appl Bupropion HCl (Bupropion Hcl Xl 150 Mg Tab.Er.24h) 150 mg PO DAILY [facility] Last Admin: 12/15/23 09:05 Dose: 150 mg Cefuroxime Axetil (Cefuroxime Axetil 250 Mg Tablet) 250 mg PO BID [facility] Stop: 12/17/23 21:00 Last Admin: 12/15/23 09:05 Dose: 250 mg Clonidine HCl (Clonidine Hcl 0.1 Mg Tablet) 0.1 mg PO BID [facility]; Protocol Last Admin: 12/15/23 09:05 Dose: 0.1 mg Diltiazem HCl (Diltiazem Hcl Cd 120 Mg Cap.Er.Deg) 120 mg PO DAILY [facility]; Protocol Last Admin: 12/15/23 09:05 Dose: 120 mg Dolutegravir Sodium (Dolutegravir Sodium 50 Mg Tablet) 50 mg PO DAILY [facility] Last Admin: 12/15/23 09:05 Dose: 50 mg Emtricitabine/Tenofovir Alafenamide (Emtricitabine/Tenofov Alafenam Tablet) 1 tab PO DAILY [facility] Last Admin: 12/15/23 09:05 Dose: 1 tab Hydroxyzine HCl (Hydroxyzine Hcl 25 Mg Tablet) 25 mg PO Q6H PRN PRN Reason: Anxiety Ibuprofen (Ibuprofen 400 Mg Tablet) 400 mg PO Q6H PRN PRN Reason: Pain, Moderate(Pain Scale 4-6) Last Admin: 12/15/23 09:14 Dose: 400 mg Magnesium Hydroxide (Milk Of Magnesia 30 Ml Oral.Susp) 30 ml PO DAILY PRN PRN Reason: Constipation Metformin HCl (Metformin Hcl 500 Mg Tablet) 500 mg PO DAILY [facility] Last Admin: 12/15/23 09:05 Dose: 500 mg Methadone HCl (Methadone Hcl 20 Mg/2 Ml Oral.Conc) 58 mg PO DAILY [facility] Last Admin: 12/15/23 08:05 Dose: 58 mg Nicotine (Nicotine 21 Mg Patch.Td24) 21 mg TRANSDERMA DAILY [facility] Last Admin: 12/15/23 09:05 Dose: 21 mg Nicotine Polacrilex (Nicotine Polacrilex 2 Mg Gum) 4 mg BUCCAL Q2H PRN PRN Reason: Nicotine Cravings Omeprazole (Omeprazole 20 Mg Capsule.Dr) 20 mg PO BID@0630,1830 [facility] Last Admin: 12/15/23 06:55 Dose: 20 mg Prazosin HCl (Prazosin Hcl 1 Mg Capsule) 2 mg PO BEDTIME [facility]; Protocol Last Admin: 12/14/23 21:51 Dose: 2 mg Trazodone HCl (Trazodone Hcl 100 Mg Tablet) 100 mg PO BEDTIME [facility] Last Admin: 12/14/23 21:50 Dose: 100 mg Allergies Allergies Allergy/AdvReac Type Severity Reaction Status Date / Time acetaminophen [From TYLENOL] Allergy Unknown HIVES Verified 12/12/23 22:27 Assessment & Plan Assessment & Plan (1) MDD (major depressive disorder), recurrent episode: Status: Acute Code(s): F33.9 - Major depressive disorder, recurrent, unspecified (2) PTSD (post-traumatic stress disorder): Status: Acute Code(s): F43.10 - Post-traumatic stress disorder, unspecified (3) Opioid use disorder: Status: Acute Code(s): F11.90 - Opioid use, unspecified, uncomplicated (4) Cocaine use disorder: Status: Acute Code(s): F14.10 - Cocaine abuse, uncomplicated Plan Patient is a 53 year old female with hx of MDD, PTSD, cocaine use d/o and opioid use d/o who self presented to [facility] d/t suicidal ideation secondary to life stressors. Plan: CV 15 minute safety checks Continue home medications PT consult: pt reports she uses cane to ambulate referral to outpatient therapist and prescriber encourage groups discharge planning 12/13: Keeping to self. In bed most of the morning. Pt continues to report depression and anxious today; pt stated, I'm not having any withdrawal symptoms and I slept okay. I'm going to try to go to groups . Pt denies SI/HI/VH/AH. Pt reports taking Wellbutrin in the past with positive effect. Start: Wellbutrin XL 150mg PO daily clonidine 0.1mg PO BID Decrease Trazodone to 100mg PO bedtime 12/14: Pt continues to report depression and anxious today; she reports sleeping well. Pt stated, I'm going to try to get up and shower then go to groups today . Pt denies SI/HI/VH/AH. Continue current tx plan. Patient educated on: diagnosis, medication risk/benefits and therapeutic strategies Informed Consent: understands Reason for continued inpatient stay Substantial Risk for: med/psych decompensation Time Spent With Patient Time: Total time managing care of this patient today _20___ minutes.
[2023-12-15 21:48] VITALS: BP 116/71; PULSE 85; RESP 14; TEMP 35.8; O2SAT 97
[2023-12-15] MEDS: traZODone HCL 100 MG TABLET PO (22:37)
[2023-12-15] MEDS: Prazosin HCL 1 MG CAPSULE 2 MG PO (22:37)
[2023-12-16 07:20] VITALS: BP 111/64; PULSE 81; RESP 14; TEMP 36.7; O2SAT 95
--- NOTE | 2023-12-16 07:37 | HO.PSYCHPN ---
Subjective Subjective Date of Service: 12/16/23 Reason For Visit: crisis Subjective Notes: Conditional Voluntary Interim History: Reviewed with Dr. Dozier. Active on unit, attending groups. Pt reports feeling better today ; pt stated, I think the medication is helping. I plan on living with my sister when I leave here and attending IOP . formula room worker, keaton Dias. Pt denies SI/HI/VH/AH. per nursing, pt slept 8 hours last night. Medication Compliance: Yes Side effects from medications: No Attending Groups: Yes Review of Systems Constitutional: Reports as per HPI Eyes: Reports as per HPI Reports as per HPI Cardiovascular: Reports as per HPI Respiratory: Reports as per HPI Gastrointestinal: Reports as per HPI Genitourinary: Reports as per HPI Musculoskeletal: Reports as per HPI Skin/Breast: Reports as per HPI Reports as per HPI Psychiatric: Reports as per HPI Endocrine: Reports as per HPI Hematologic/Lymphatic: Reports as per HPI Allergic/Immunologic: Reports as per HPI Mental Status Exam Mental Status Exam Narrative: Pt is alert and oriented; behavior is cooperative and calm; dressed in casual attire; mood is described as better ; eye contact appropriate; Speech is normal rate, volume and not pressured; thought process is organized and goal directed; Thought content is on tx; otherwise pertinent to relevant topics and without any delusional content, paranoid ideations or grandiosity; denies SI/HI/VH/AH. Diagnostics Vital Signs (24Hr): Vital Signs - 24 hr 12/15/23 07:46 12/15/23 21:48 Temperature 96.9 F 96.5 F L Pulse Rate 87 85 Respiratory Rate 16 14 Blood Pressure 125/59 L 116/71 Pulse Oximetry 96 97 Oxygen Delivery Method Room Air Room Air BMI result Body Mass Index 28.0 Labs 12/12/23 23:12 12/14/23 08:20 Labs: Laboratory Results - last 48 hr 12/14/23 12/14/23 12/15/23 08:20 08:21 08:54 Sodium 143 Potassium 3.1 L Chloride 107 Carbon Dioxide 28 Anion Gap 11 L BUN 9 Creatinine 0.80 Estim Creat Clear Calc 74.9 Estimated GFR > 60 POC Glucose 144 H 120 H Fasting Glucose 133 H Calcium 9.0 Total Bilirubin 0.2 AST 16 ALT 7 Alkaline Phosphatase 56 Total Protein 6.8 Albumin 3.5 Triglycerides 82 Cholesterol 149 LDL Cholesterol, Calc 85 HDL Cholesterol 48 Medications Medications Current Medications Al Hydroxide/Mg Hydroxide (Magnesium Hydrox/Alum Hydrox 30 Ml Oral.Susp) 30 ml PO Q6H PRN PRN Reason: Heartburn/Nausea Albuterol Sulfate (Albuterol Sulfate 90 Mcg 8 Gm Inhaler) 2 puff INHALE Q3H PRN PRN Reason: Wheezing Benzocaine (Benzocaine 20 % Oral Gel 9 Gm Tube) 1 appl MUCOUS MEM QID PRN; Protocol PRN Reason: mucous membrane pain Last Admin: 12/15/23 18:57 Dose: 1 appl Bupropion HCl (Bupropion Hcl Xl 150 Mg Tab.Er.24h) 150 mg PO DAILY [facility] Last Admin: 12/15/23 09:05 Dose: 150 mg Cefuroxime Axetil (Cefuroxime Axetil 250 Mg Tablet) 250 mg PO BID [facility] Stop: 12/17/23 21:00 Last Admin: 12/15/23 22:37 Dose: 250 mg Clonidine HCl (Clonidine Hcl 0.1 Mg Tablet) 0.1 mg PO BID [facility]; Protocol Last Admin: 12/15/23 22:37 Dose: 0.1 mg Diltiazem HCl (Diltiazem Hcl Cd 120 Mg Cap.Er.Deg) 120 mg PO DAILY [facility]; Protocol Last Admin: 12/15/23 09:05 Dose: 120 mg Dolutegravir Sodium (Dolutegravir Sodium 50 Mg Tablet) 50 mg PO DAILY [facility] Last Admin: 12/15/23 09:05 Dose: 50 mg Emtricitabine/Tenofovir Alafenamide (Emtricitabine/Tenofov Alafenam Tablet) 1 tab PO DAILY [facility] Last Admin: 12/15/23 09:05 Dose: 1 tab Hydroxyzine HCl (Hydroxyzine Hcl 25 Mg Tablet) 25 mg PO Q6H PRN PRN Reason: Anxiety Ibuprofen (Ibuprofen 400 Mg Tablet) 400 mg PO Q6H PRN PRN Reason: Pain, Moderate(Pain Scale 4-6) Last Admin: 12/15/23 18:56 Dose: 400 mg Magnesium Hydroxide (Milk Of Magnesia 30 Ml Oral.Susp) 30 ml PO DAILY PRN PRN Reason: Constipation Metformin HCl (Metformin Hcl 500 Mg Tablet) 500 mg PO DAILY [facility] Last Admin: 12/15/23 09:05 Dose: 500 mg Methadone HCl (Methadone Hcl 20 Mg/2 Ml Oral.Conc) 58 mg PO DAILY [facility] Last Admin: 12/15/23 08:05 Dose: 58 mg Nicotine (Nicotine 21 Mg Patch.Td24) 21 mg TRANSDERMA DAILY [facility] Last Admin: 12/15/23 09:05 Dose: 21 mg Nicotine Polacrilex (Nicotine Polacrilex 2 Mg Gum) 4 mg BUCCAL Q2H PRN PRN Reason: Nicotine Cravings Omeprazole (Omeprazole 20 Mg Capsule.Dr) 20 mg PO BID@0630,1830 [facility] Last Admin: 12/15/23 18:57 Dose: 20 mg Prazosin HCl (Prazosin Hcl 1 Mg Capsule) 2 mg PO BEDTIME [facility]; Protocol Last Admin: 12/15/23 22:37 Dose: 2 mg Trazodone HCl (Trazodone Hcl 100 Mg Tablet) 100 mg PO BEDTIME [facility] Last Admin: 12/15/23 22:37 Dose: 100 mg Allergies Allergies Allergy/AdvReac Type Severity Reaction Status Date / Time acetaminophen [From TYLENOL] Allergy Unknown HIVES Verified 12/12/23 22:27 Assessment & Plan Assessment & Plan (1) MDD (major depressive disorder), recurrent episode: Status: Acute Code(s): F33.9 - Major depressive disorder, recurrent, unspecified (2) PTSD (post-traumatic stress disorder): Status: Acute Code(s): F43.10 - Post-traumatic stress disorder, unspecified (3) Opioid use disorder: Status: Acute Code(s): F11.90 - Opioid use, unspecified, uncomplicated (4) Cocaine use disorder: Status: Acute Code(s): F14.10 - Cocaine abuse, uncomplicated Plan Patient is a 53 year old female with hx of MDD, PTSD, cocaine use d/o and opioid use d/o who self presented to [facility] [place] [place] d/t suicidal ideation secondary to life stressors. Plan: CV 15 minute safety checks Continue home medications PT consult: pt reports she uses cane to ambulate referral to outpatient therapist and prescriber encourage groups discharge planning 12/13: Keeping to self. In bed most of the morning. Pt continues to report depression and anxious today; pt stated, I'm not having any withdrawal symptoms and I slept okay. I'm going to try to go to groups . Pt denies SI/HI/VH/AH. Pt reports taking Wellbutrin in the past with positive effect. Start: Wellbutrin XL 150mg PO daily clonidine 0.1mg PO BID Decrease Trazodone to 100mg PO bedtime 12/14: Pt continues to report depression and anxious today; she reports sleeping well. Pt stated, I'm going to try to get up and shower then go to groups today . Pt denies SI/HI/VH/AH. Continue current tx plan. 12/15: Active on unit, attending groups. Pt reports feeling better today ; pt stated, I think the medication is helping. I plan on living with my sister when I leave here and attending IOP . formula room worker, Larissa, keaton. Pt denies SI/HI/VH/AH. per nursing, pt slept 8 hours last night. Continue current tx plan. Patient educated on: diagnosis and medication risk/benefits Informed Consent: understands Reason for continued inpatient stay Substantial Risk for: med/psych decompensation Time Spent With Patient Time: Total time managing care of this patient today _20___ minutes.
[2023-12-16 08:49] LABS: Glucose, Whole Blood 104 mg/dL (60-115)
[2023-12-16] MEDS: methADONE HCl 20 MG/2 ML ORAL.CONC 58 MG PO (09:00)
[2023-12-16] MEDS: Nicotine 21 MG PATCH.TD24 TRANSDERMA (09:01)
[2023-12-16 09:02] VITALS: BP 111/64; PULSE 81
[2023-12-16] MEDS: buPROPion HCl XL 150 MG TAB.ER.24H PO (09:02)
[2023-12-16] MEDS: cloNIDine HCL 0.1 MG TABLET PO ×2 (09:02→21:47)
[2023-12-16] MEDS: dilTIAZem HCL CD 120 MG CAP.ER.DEG PO (09:02)
[2023-12-16] MEDS: metFORMIN HCl 500 MG TABLET PO (09:02)
[2023-12-16] MEDS: Emtricitabine/Tenofov Alafenam TABLET 1 TAB PO (09:02)
[2023-12-16] MEDS: Dolutegravir Sodium 50 MG TABLET PO (09:02)
[2023-12-16] MEDS: cefuroxime axetiL 250 MG TABLET PO ×2 (09:03→21:46)
[2023-12-16] MEDS: Ibuprofen 400 MG TABLET PO ×2 (09:06→21:46)
[2023-12-16] MEDS: Benzocaine 20 % Oral Gel 9 GM TUBE 1 APPL MUCOUS MEM (09:47)
[2023-12-16] MEDS: Omeprazole 20 MG CAPSULE.DR PO ×2 (10:31→18:45)
[2023-12-16 21:30] VITALS: BP 122/73; PULSE 84; RESP 18; TEMP 36.2; O2SAT 98
[2023-12-16] MEDS: Prazosin HCL 1 MG CAPSULE 2 MG PO (21:46)
[2023-12-16 21:47] VITALS: BP 122/73
[2023-12-16] MEDS: traZODone HCL 100 MG TABLET PO (21:48)
[2023-12-16 22:02] LABS: Glucose, Whole Blood 141 mg/dL (60-115)
[2023-12-17] MEDS: methADONE HCl 20 MG/2 ML ORAL.CONC 58 MG PO (08:07)
[2023-12-17 08:15] VITALS: BP 113/83; PULSE 81; RESP 14; TEMP 36.6; O2SAT 96
[2023-12-17] MEDS: metFORMIN HCl 500 MG TABLET PO (08:52)
[2023-12-17] MEDS: Dolutegravir Sodium 50 MG TABLET PO (08:53)
[2023-12-17] MEDS: cefuroxime axetiL 250 MG TABLET PO ×2 (08:53→21:27)
[2023-12-17] MEDS: Emtricitabine/Tenofov Alafenam TABLET 1 TAB PO (08:53)
[2023-12-17] MEDS: dilTIAZem HCL CD 120 MG CAP.ER.DEG PO (08:54)
[2023-12-17] MEDS: buPROPion HCl XL 150 MG TAB.ER.24H PO (08:54)
[2023-12-17] MEDS: cloNIDine HCL 0.1 MG TABLET PO ×2 (08:55→21:28)
[2023-12-17] MEDS: Nicotine 21 MG PATCH.TD24 TRANSDERMA (08:55)
[2023-12-17] MEDS: Omeprazole 20 MG CAPSULE.DR PO ×2 (08:55→17:32)
[2023-12-17 09:05] LABS: Glucose, Whole Blood 125 mg/dL (60-115)
[2023-12-17] MEDS: Benzocaine 20 % Oral Gel 9 GM TUBE 1 APPL MUCOUS MEM ×2 (09:48→19:16)
[2023-12-17] MEDS: Ibuprofen 400 MG TABLET PO (09:48)
--- NOTE | 2023-12-17 13:50 | P.PNPSI_ITS ---
Subjective Subjective Date of Service: 12/17/23 Reason For Visit: crisis Subjective Notes: Conditional Voluntary Interim History: The nursing staff reported that the patient had been pleasant going to groups she denies active suicidal ideation and she was been seen walking with a walker. She is on antibiotics for UTI that finished today. On interview the patient denies new symptoms she reports that her dysuria is improving. We are going to order a new UA after the course of antibiotics for tomorrow morning. Mental Status Exam Mental Status Exam Patient Appearance: Appropriate Patient Orientation: Person and Situation Level of Consciousness: Awake and Appropriate Patient Behavior: Guarded and Passive Mood Description: Withdrawn Affect Description: Calm Patient Cognition Impaired: Yes Ability to Follow Directions: Good Speech Pattern: Clear Hallucinations: None Delusions: Not Present Thought Process: Linear Thought Content: positive for Circumstantial Judgement: Fair Diagnostics Vital Signs (24Hr): Vital Signs - 24 hr 12/16/23 21:30 12/16/23 21:47 12/17/23 08:15 Temperature 97.2 F 97.8 F Pulse Rate 84 81 Respiratory Rate 18 14 Blood Pressure 122/73 122/73 113/83 Pulse Oximetry 98 96 Oxygen Delivery Method Room Air Room Air BMI result Body Mass Index 28.0 Labs 12/12/23 23:12 12/14/23 08:20 Labs: Laboratory Results - last 48 hr 12/16/23 12/16/23 12/17/23 08:37 21:43 08:58 POC Glucose 104 141 H 125 H Medications Medications Current Medications Al Hydroxide/Mg Hydroxide (Magnesium Hydrox/Alum Hydrox 30 Ml Oral.Susp) 30 ml PO Q6H PRN PRN Reason: Heartburn/Nausea Albuterol Sulfate (Albuterol Sulfate 90 Mcg 8 Gm Inhaler) 2 puff INHALE Q3H PRN PRN Reason: Wheezing Benzocaine (Benzocaine 20 % Oral Gel 9 Gm Tube) 1 appl MUCOUS MEM QID PRN; Protocol PRN Reason: mucous membrane pain Last Admin: 12/17/23 09:48 Dose: 1 appl Bupropion HCl (Bupropion Hcl Xl 150 Mg Tab.Er.24h) 150 mg PO DAILY [facility] Last Admin: 12/17/23 08:54 Dose: 150 mg Cefuroxime Axetil (Cefuroxime Axetil 250 Mg Tablet) 250 mg PO BID [facility] Stop: 12/17/23 21:00 Last Admin: 12/17/23 08:53 Dose: 250 mg Clonidine HCl (Clonidine Hcl 0.1 Mg Tablet) 0.1 mg PO BID [facility]; Protocol Last Admin: 12/17/23 08:55 Dose: 0.1 mg Diltiazem HCl (Diltiazem Hcl Cd 120 Mg Cap.Er.Deg) 120 mg PO DAILY [facility]; Protocol Last Admin: 12/17/23 08:54 Dose: 120 mg Dolutegravir Sodium (Dolutegravir Sodium 50 Mg Tablet) 50 mg PO DAILY [facility] Last Admin: 12/17/23 08:53 Dose: 50 mg Emtricitabine/Tenofovir Alafenamide (Emtricitabine/Tenofov Alafenam Tablet) 1 tab PO DAILY [facility] Last Admin: 12/17/23 08:53 Dose: 1 tab Hydroxyzine HCl (Hydroxyzine Hcl 25 Mg Tablet) 25 mg PO Q6H PRN PRN Reason: Anxiety Ibuprofen (Ibuprofen 400 Mg Tablet) 400 mg PO Q6H PRN PRN Reason: Pain, Moderate(Pain Scale 4-6) Last Admin: 12/17/23 09:48 Dose: 400 mg Magnesium Hydroxide (Milk Of Magnesia 30 Ml Oral.Susp) 30 ml PO DAILY PRN PRN Reason: Constipation Metformin HCl (Metformin Hcl 500 Mg Tablet) 500 mg PO DAILY [facility] Last Admin: 12/17/23 08:52 Dose: 500 mg Methadone HCl (Methadone Hcl 20 Mg/2 Ml Oral.Conc) 58 mg PO DAILY [facility] Last Admin: 12/17/23 08:07 Dose: 58 mg Nicotine (Nicotine 21 Mg Patch.Td24) 21 mg TRANSDERMA DAILY [facility] Last Admin: 12/17/23 08:55 Dose: 21 mg Nicotine Polacrilex (Nicotine Polacrilex 2 Mg Gum) 4 mg BUCCAL Q2H PRN PRN Reason: Nicotine Cravings Omeprazole (Omeprazole 20 Mg Capsule.Dr) 20 mg PO BID@0630,1830 [facility] Last Admin: 12/17/23 08:55 Dose: 20 mg Prazosin HCl (Prazosin Hcl 1 Mg Capsule) 2 mg PO BEDTIME [facility]; Protocol Last Admin: 12/16/23 21:46 Dose: 2 mg Trazodone HCl (Trazodone Hcl 100 Mg Tablet) 100 mg PO BEDTIME [facility] Last Admin: 12/16/23 21:48 Dose: 100 mg Allergies Allergies Allergy/AdvReac Type Severity Reaction Status Date / Time acetaminophen [From TYLENOL] Allergy Unknown HIVES Verified 12/12/23 22:27 Assessment & Plan Assessment & Plan (1) MDD (major depressive disorder), recurrent episode: Status: Acute Code(s): F33.9 - Major depressive disorder, recurrent, unspecified (2) PTSD (post-traumatic stress disorder): Status: Acute Code(s): F43.10 - Post-traumatic stress disorder, unspecified (3) Opioid use disorder: Status: Acute Code(s): F11.90 - Opioid use, unspecified, uncomplicated (4) Cocaine use disorder: Status: Acute Code(s): F14.10 - Cocaine abuse, uncomplicated Plan Patient is a 53 year old female with hx of MDD, PTSD, cocaine use d/o and opioid use d/o who self presented to [facility] d/t suicidal ideation secondary to life stressors. Plan: CV 15 minute safety checks Continue home medications PT consult: pt reports she uses cane to ambulate referral to outpatient therapist and prescriber encourage groups discharge planning 12/13: Keeping to self. In bed most of the morning. Pt continues to report depression and anxious today; pt stated, I'm not having any withdrawal symptoms and I slept okay. I'm going to try to go to groups . Pt denies SI/HI/VH/AH. Pt reports taking Wellbutrin in the past with positive effect. Start: Wellbutrin XL 150mg PO daily clonidine 0.1mg PO BID Decrease Trazodone to 100mg PO bedtime 12/14: Pt continues to report depression and anxious today; she reports sleeping well. Pt stated, I'm going to try to get up and shower then go to groups today . Pt denies SI/HI/VH/AH. Continue current tx plan. 12/15: Active on unit, attending groups. Pt reports feeling better today ; pt stated, I think the medication is helping. I plan on living with my sister when I leave here and attending IOP . forensic social worker, Larissa, ke[place]. Pt denies SI/HI/VH/AH. per nursing, pt slept 8 hours last night. Continue current tx plan. 12/16 keep same treatment UA for tomorrow. Reason for continued inpatient stay Substantial Risk for: inability to function, rapid decompensation and med/psych decompensation Time Spent With Patient Time: Total time managing care of this patient today __20__ minutes.
[2023-12-17 21:25] VITALS: BP 104/69; PULSE 80; RESP 16; TEMP 36.8; O2SAT 97
[2023-12-17 21:27] VITALS: BP 104/69
[2023-12-17] MEDS: Prazosin HCL 1 MG CAPSULE 2 MG PO (21:27)
[2023-12-17] MEDS: traZODone HCL 100 MG TABLET PO (21:27)
[2023-12-17 21:47] LABS: Glucose, Whole Blood 124 mg/dL (60-115)
[2023-12-18] MEDS: methADONE HCl 20 MG/2 ML ORAL.CONC 58 MG PO (08:21)
[2023-12-18 08:28] LABS: Glucose, Whole Blood 94 mg/dL (60-115)
[2023-12-18 08:31] LABS: Appearance Urine Clear; Color Urine Yellow; Glucose Urine UA Negative (Negative); Leukocyte Esterase Urine Negative (Negative); Nitrite Urine Negative (Negative); PH 7.5 (5.0-9.0); Urine Blood Negative (Negative); Urine Ketones Negative (Negative); Urine Protein Negative (Neg-Trace)
[2023-12-18 08:34] VITALS: BP 118/59; PULSE 78; RESP 16; TEMP 35.8; O2SAT 97
[2023-12-18 08:36] LABS: Bacteria Urine None Seen (None Seen); Hyaline Casts Urine 0-2 /LPF (0-2); RBC Urine 0-2 /HPF (0-2); Squamous Epithelial Cell Urine 0-2 /HPF (0-2); WBC Urine 0-5 /HPF (0-5)
[2023-12-18] MEDS: Dolutegravir Sodium 50 MG TABLET PO (08:36)
[2023-12-18] MEDS: Emtricitabine/Tenofov Alafenam TABLET 1 TAB PO (08:36)
[2023-12-18] MEDS: dilTIAZem HCL CD 120 MG CAP.ER.DEG PO (08:36)
[2023-12-18] MEDS: metFORMIN HCl 500 MG TABLET PO (08:36)
[2023-12-18] MEDS: Benzocaine 20 % Oral Gel 9 GM TUBE 1 APPL MUCOUS MEM (08:37)
[2023-12-18] MEDS: Nicotine 21 MG PATCH.TD24 TRANSDERMA (08:37)
[2023-12-18] MEDS: cloNIDine HCL 0.1 MG TABLET PO ×2 (08:37→21:12)
[2023-12-18] MEDS: buPROPion HCl XL 150 MG TAB.ER.24H PO (08:37)
[2023-12-18] MEDS: Omeprazole 20 MG CAPSULE.DR PO ×2 (08:37→21:12)
[2023-12-18] MEDS: Ibuprofen 400 MG TABLET PO ×2 (08:48→21:18)
--- NOTE | 2023-12-18 08:50 | PC.NURSE ---
pt requested and received ibuprofen 400mg for 8/10 right hip pain, pt re educated on pain scale.
--- NOTE | 2023-12-18 12:37 | HO.PSYCHPN ---
Subjective Subjective Date of Service: 12/18/23 Reason For Visit: crisis Subjective Notes: Conditional Voluntary Interim History: Nursing staff reported that she had some depression and anxiety but able to attend to groups very polite. We did a UA and came back negative. On interview the patient denies new symptoms content with current treatment. Mental Status Exam Mental Status Exam Patient Appearance: Well Grooomed and Appropriate Patient Orientation: Person and Situation Level of Consciousness: Awake and Appropriate Patient Behavior: Guarded and Passive Mood Description: Withdrawn Affect Description: Constricted Patient Cognition Impaired: Yes Ability to Follow Directions: Good Speech Pattern: Clear Hallucinations: None Delusions: Not Present Thought Process: Goal Oriented and Linear Thought Content: positive for Circumstantial Judgement: Fair Diagnostics Vital Signs (24Hr): Vital Signs - 24 hr 12/17/23 21:25 12/17/23 21:27 12/18/23 08:34 Temperature 98.2 F 96.5 F L Pulse Rate 80 78 Respiratory Rate 16 16 Blood Pressure 104/69 104/69 118/59 L Pulse Oximetry 97 97 Oxygen Delivery Method Room Air Room Air BMI result Body Mass Index 28.0 Labs 12/12/23 23:12 12/14/23 08:20 Labs: Laboratory Results - last 48 hr 12/16/23 12/17/23 12/17/23 21:43 08:58 21:25 POC Glucose 141 H 125 H 124 H Urine Color Urine Appearance Urine pH Ur Specific [place] Urine Protein Urine Glucose (UA) Urine Ketones Urine Blood Urine Nitrite Ur Leukocyte Esterase Urine RBC Urine WBC Ur Squamous Epith Cells Urine Bacteria Hyaline Casts 12/18/23 12/18/23 08:10 08:13 POC Glucose 94 Urine Color Yellow Urine Appearance Clear Urine pH 7.5 Ur Specific [place] 1.010 Urine Protein Negative Urine Glucose (UA) Negative Urine Ketones Negative Urine Blood Negative Urine Nitrite Negative Ur Leukocyte Esterase Negative Urine RBC 0-2 Urine WBC 0-5 Ur Squamous Epith Cells 0-2 Urine Bacteria None Seen Hyaline Casts 0-2 Medications Medications Current Medications Al Hydroxide/Mg Hydroxide (Magnesium Hydrox/Alum Hydrox 30 Ml Oral.Susp) 30 ml PO Q6H PRN PRN Reason: Heartburn/Nausea Albuterol Sulfate (Albuterol Sulfate 90 Mcg 8 Gm Inhaler) 2 puff INHALE Q3H PRN PRN Reason: Wheezing Benzocaine (Benzocaine 20 % Oral Gel 9 Gm Tube) 1 appl MUCOUS MEM QID PRN; Protocol PRN Reason: mucous membrane pain Last Admin: 12/18/23 08:37 Dose: 1 appl Bupropion HCl (Bupropion Hcl Xl 150 Mg Tab.Er.24h) 150 mg PO DAILY [facility] Last Admin: 12/18/23 08:37 Dose: 150 mg Clonidine HCl (Clonidine Hcl 0.1 Mg Tablet) 0.1 mg PO BID [facility]; Protocol Last Admin: 12/18/23 08:37 Dose: 0.1 mg Diltiazem HCl (Diltiazem Hcl Cd 120 Mg Cap.Er.Deg) 120 mg PO DAILY [facility]; Protocol Last Admin: 12/18/23 08:36 Dose: 120 mg Dolutegravir Sodium (Dolutegravir Sodium 50 Mg Tablet) 50 mg PO DAILY [facility] Last Admin: 12/18/23 08:36 Dose: 50 mg Emtricitabine/Tenofovir Alafenamide (Emtricitabine/Tenofov Alafenam Tablet) 1 tab PO DAILY [facility] Last Admin: 12/18/23 08:36 Dose: 1 tab Hydroxyzine HCl (Hydroxyzine Hcl 25 Mg Tablet) 25 mg PO Q6H PRN PRN Reason: Anxiety Ibuprofen (Ibuprofen 400 Mg Tablet) 400 mg PO Q6H PRN PRN Reason: Pain, Moderate(Pain Scale 4-6) Last Admin: 12/18/23 08:48 Dose: 400 mg Magnesium Hydroxide (Milk Of Magnesia 30 Ml Oral.Susp) 30 ml PO DAILY PRN PRN Reason: Constipation Metformin HCl (Metformin Hcl 500 Mg Tablet) 500 mg PO DAILY [facility] Last Admin: 12/18/23 08:36 Dose: 500 mg Methadone HCl (Methadone Hcl 20 Mg/2 Ml Oral.Conc) 58 mg PO DAILY [facility] Last Admin: 12/18/23 08:21 Dose: 58 mg Nicotine (Nicotine 21 Mg Patch.Td24) 21 mg TRANSDERMA DAILY [facility] Last Admin: 12/18/23 08:37 Dose: 21 mg Nicotine Polacrilex (Nicotine Polacrilex 2 Mg Gum) 4 mg BUCCAL Q2H PRN PRN Reason: Nicotine Cravings Omeprazole (Omeprazole 20 Mg Capsule.Dr) 20 mg PO BID@0630,1830 [facility] Last Admin: 12/18/23 08:37 Dose: 20 mg Prazosin HCl (Prazosin Hcl 1 Mg Capsule) 2 mg PO BEDTIME [facility]; Protocol Last Admin: 12/17/23 21:27 Dose: 2 mg Trazodone HCl (Trazodone Hcl 100 Mg Tablet) 100 mg PO BEDTIME [facility] Last Admin: 12/17/23 21:27 Dose: 100 mg Allergies Allergies Allergy/AdvReac Type Severity Reaction Status Date / Time acetaminophen [From TYLENOL] Allergy Unknown HIVES Verified 12/12/23 22:27 Assessment & Plan Assessment & Plan (1) MDD (major depressive disorder), recurrent episode: Status: Acute Code(s): F33.9 - Major depressive disorder, recurrent, unspecified (2) PTSD (post-traumatic stress disorder): Status: Acute Code(s): F43.10 - Post-traumatic stress disorder, unspecified (3) Opioid use disorder: Status: Acute Code(s): F11.90 - Opioid use, unspecified, uncomplicated (4) Cocaine use disorder: Status: Acute Code(s): F14.10 - Cocaine abuse, uncomplicated Plan Patient is a 53 year old female with hx of MDD, PTSD, cocaine use d/o and opioid use d/o who self presented to [facility] [place] [facility] d/t suicidal ideation secondary to life stressors. Plan: CV 15 minute safety checks Continue home medications PT consult: pt reports she uses cane to ambulate referral to outpatient therapist and prescriber encourage groups discharge planning 12/13: Keeping to self. In bed most of the morning. Pt continues to report depression and anxious today; pt stated, I'm not having any withdrawal symptoms and I slept okay. I'm going to try to go to groups . Pt denies SI/HI/VH/AH. Pt reports taking Wellbutrin in the past with positive effect. Start: Wellbutrin XL 150mg PO daily clonidine 0.1mg PO BID Decrease Trazodone to 100mg PO bedtime 12/14: Pt continues to report depression and anxious today; she reports sleeping well. Pt stated, I'm going to try to get up and shower then go to groups today . Pt denies SI/HI/VH/AH. Continue current tx plan. 12/15: Active on unit, attending groups. Pt reports feeling better today ; pt stated, I think the medication is helping. I plan on living with my sister when I leave here and attending IOP . 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 Pt denies SI/HI/VH/AH. per nursing, pt slept 8 hours last night. Continue current tx plan. 12/16 keep same treatment UA for tomorrow. 12/17 UA came back within normal limits UTI resolved. Continue with same treatment. Reason for continued inpatient stay Substantial Risk for: inability to function, rapid decompensation and med/psych decompensation Time Spent With Patient Time: Total time managing care of this patient today ___20_ minutes.
[2023-12-18 20:22] VITALS: BP 108/52; PULSE 75; RESP 16; TEMP 36.1; O2SAT 96
[2023-12-18] MEDS: traZODone HCL 100 MG TABLET PO (21:12)
[2023-12-18] MEDS: Prazosin HCL 1 MG CAPSULE 2 MG PO (21:12)
[2023-12-19 08:00] VITALS: BP 93/53; PULSE 82; RESP 16; TEMP 36.4; O2SAT 98
[2023-12-19] MEDS: methADONE HCl 20 MG/2 ML ORAL.CONC 58 MG PO (08:03)
[2023-12-19 08:33] LABS: Glucose, Whole Blood 95 mg/dL (60-115)
[2023-12-19] MEDS: Omeprazole 20 MG CAPSULE.DR PO ×2 (08:41→18:54)
[2023-12-19] MEDS: Nicotine 21 MG PATCH.TD24 TRANSDERMA (08:41)
[2023-12-19] MEDS: Emtricitabine/Tenofov Alafenam TABLET 1 TAB PO (08:42)
[2023-12-19] MEDS: buPROPion HCl XL 150 MG TAB.ER.24H PO (08:43)
[2023-12-19] MEDS: metFORMIN HCl 500 MG TABLET PO (08:43)
[2023-12-19] MEDS: Dolutegravir Sodium 50 MG TABLET PO (08:43)
[2023-12-19 08:53] LABS: Creatinine Clr Calc Pharmacy 67.5; Estimated Glomerular Filt Rate > 60
[2023-12-19 08:55] VITALS: BP 100/72; PULSE 76
[2023-12-19 08:56] VITALS: BP 100/72; PULSE 76
[2023-12-19] MEDS: dilTIAZem HCL CD 120 MG CAP.ER.DEG PO (08:56)
[2023-12-19 08:57] VITALS: BP 100/72
[2023-12-19] MEDS: cloNIDine HCL 0.1 MG TABLET PO (08:57)
[2023-12-19] MEDS: Ibuprofen 400 MG TABLET PO ×2 (08:58→22:17)
--- NOTE | 2023-12-19 09:40 | P.PNPSI_ITS ---
Subjective Subjective Date of Service: 12/19/23 Reason For Visit: crisis Subjective Notes: Conditional Voluntary Interim History: Reviewed with Dr. Dozier. Active on unit, keeping to self. Pt reports feeling anxious and depressed but it's tolerable . She reports sleeping well. Pt reports she plans on going to her sisters home after discharge. pt denies SI/HI/VH/AH. Pt requested to be restarted on low dose thorazine d/t being beneficial for her anxiety and agitation in the past. Start: thorazine 10mg PO Q6hr PRN Medication Compliance: Yes Side effects from medications: No Attending Groups: Yes Review of Systems Constitutional: Reports as per HPI Eyes: Reports as per HPI Reports as per HPI Cardiovascular: Reports as per HPI Respiratory: Reports as per HPI Gastrointestinal: Reports as per HPI Musculoskeletal: Reports as per HPI Skin/Breast: Reports as per HPI Reports as per HPI Psychiatric: Reports as per HPI Endocrine: Reports as per HPI Hematologic/Lymphatic: Reports as per HPI Allergic/Immunologic: Reports as per HPI Mental Status Exam Mental Status Exam Narrative: Pt is alert and oriented; behavior is cooperative and calm; dressed in casual attire; mood is described as anxious ; eye contact appropriate; Speech is normal rate, volume and not pressured; thought process is organized and goal directed; Thought content is on tx; otherwise pertinent to relevant topics and without any delusional content, paranoid ideations or grandiosity; denies SI/HI/VH/AH. Diagnostics Vital Signs (24Hr): Vital Signs - 24 hr 12/18/23 20:22 12/19/23 08:00 12/19/23 08:55 Temperature 97.0 F 97.6 F Pulse Rate 75 82 76 Respiratory Rate 16 16 Blood Pressure 108/52 L 93/53 L 100/72 Pulse Oximetry 96 98 Oxygen Delivery Method Room Air Room Air 12/19/23 08:56 12/19/23 08:57 Temperature Pulse Rate 76 Respiratory Rate Blood Pressure 100/72 100/72 Pulse Oximetry Oxygen Delivery Method BMI result Body Mass Index 28.0 Labs 12/12/23 23:12 12/19/23 08:34 Labs: Laboratory Results - last 48 hr 12/17/23 12/18/23 12/18/23 21:25 08:10 08:13 Creatinine Estim Creat Clear Calc Estimated GFR POC Glucose 124 H 94 Urine Color Yellow Urine Appearance Clear Urine pH 7.5 Ur Specific [place] 1.010 Urine Protein Negative Urine Glucose (UA) Negative Urine Ketones Negative Urine Blood Negative Urine Nitrite Negative Ur Leukocyte Esterase Negative Urine RBC 0-2 Urine WBC 0-5 Ur Squamous Epith Cells 0-2 Urine Bacteria None Seen Hyaline Casts 0-2 12/19/23 12/19/23 08:28 08:34 Creatinine 0.89 Estim Creat Clear Calc 67.5 Estimated GFR > 60 POC Glucose 95 Urine Color Urine Appearance Urine pH Ur Specific [place] Urine Protein Urine Glucose (UA) Urine Ketones Urine Blood Urine Nitrite Ur Leukocyte Esterase Urine RBC Urine WBC Ur Squamous Epith Cells Urine Bacteria Hyaline Casts Medications Medications Current Medications Al Hydroxide/Mg Hydroxide (Magnesium Hydrox/Alum Hydrox 30 Ml Oral.Susp) 30 ml PO Q6H PRN PRN Reason: Heartburn/Nausea Albuterol Sulfate (Albuterol Sulfate 90 Mcg 8 Gm Inhaler) 2 puff INHALE Q3H PRN PRN Reason: Wheezing Benzocaine (Benzocaine 20 % Oral Gel 9 Gm Tube) 1 appl MUCOUS MEM QID PRN; Protocol PRN Reason: mucous membrane pain Last Admin: 12/18/23 08:37 Dose: 1 appl Bupropion HCl (Bupropion Hcl Xl 150 Mg Tab.Er.24h) 150 mg PO DAILY [facility] Last Admin: 12/19/23 08:43 Dose: 150 mg Clonidine HCl (Clonidine Hcl 0.1 Mg Tablet) 0.1 mg PO BID [facility]; Protocol Last Admin: 12/19/23 08:57 Dose: 0.1 mg Diltiazem HCl (Diltiazem Hcl Cd 120 Mg Cap.Er.Deg) 120 mg PO DAILY [facility]; Protocol Last Admin: 12/19/23 08:56 Dose: 120 mg Dolutegravir Sodium (Dolutegravir Sodium 50 Mg Tablet) 50 mg PO DAILY [facility] Last Admin: 12/19/23 08:43 Dose: 50 mg Emtricitabine/Tenofovir Alafenamide (Emtricitabine/Tenofov Alafenam Tablet) 1 tab PO DAILY [facility] Last Admin: 12/19/23 08:42 Dose: 1 tab Hydroxyzine HCl (Hydroxyzine Hcl 25 Mg Tablet) 25 mg PO Q6H PRN PRN Reason: Anxiety Ibuprofen (Ibuprofen 400 Mg Tablet) 400 mg PO Q6H PRN PRN Reason: Pain, Moderate(Pain Scale 4-6) Last Admin: 12/19/23 08:58 Dose: 400 mg Magnesium Hydroxide (Milk Of Magnesia 30 Ml Oral.Susp) 30 ml PO DAILY PRN PRN Reason: Constipation Metformin HCl (Metformin Hcl 500 Mg Tablet) 500 mg PO DAILY [facility] Last Admin: 12/19/23 08:43 Dose: 500 mg Methadone HCl (Methadone Hcl 20 Mg/2 Ml Oral.Conc) 58 mg PO DAILY [facility] Last Admin: 12/19/23 08:03 Dose: 58 mg Nicotine (Nicotine 21 Mg Patch.Td24) 21 mg TRANSDERMA DAILY [facility] Last Admin: 12/19/23 08:41 Dose: 21 mg Nicotine Polacrilex (Nicotine Polacrilex 2 Mg Gum) 4 mg BUCCAL Q2H PRN PRN Reason: Nicotine Cravings Omeprazole (Omeprazole 20 Mg Capsule.Dr) 20 mg PO BID@0630,1830 [facility] Last Admin: 12/19/23 08:41 Dose: 20 mg Prazosin HCl (Prazosin Hcl 1 Mg Capsule) 2 mg PO BEDTIME [facility]; Protocol Last Admin: 12/18/23 21:12 Dose: 2 mg Trazodone HCl (Trazodone Hcl 100 Mg Tablet) 100 mg PO BEDTIME [facility] Last Admin: 12/18/23 21:12 Dose: 100 mg Allergies Allergies Allergy/AdvReac Type Severity Reaction Status Date / Time acetaminophen [From TYLENOL] Allergy Unknown HIVES Verified 12/12/23 22:27 Assessment & Plan Assessment & Plan (1) MDD (major depressive disorder), recurrent episode: Status: Acute Code(s): F33.9 - Major depressive disorder, recurrent, unspecified (2) PTSD (post-traumatic stress disorder): Status: Acute Code(s): F43.10 - Post-traumatic stress disorder, unspecified (3) Opioid use disorder: Status: Acute Code(s): F11.90 - Opioid use, unspecified, uncomplicated (4) Cocaine use disorder: Status: Acute Code(s): F14.10 - Cocaine abuse, uncomplicated Plan Patient is a 53 year old female with hx of MDD, PTSD, cocaine use d/o and opioid use d/o who self presented to [facility] d/t suicidal ideation secondary to life stressors. Plan: CV 15 minute safety checks Continue home medications PT consult: pt reports she uses cane to ambulate referral to outpatient therapist and prescriber encourage groups discharge planning 12/13: Keeping to self. In bed most of the morning. Pt continues to report depression and anxious today; pt stated, I'm not having any withdrawal symptoms and I slept okay. I'm going to try to go to groups . Pt denies SI/HI/VH/AH. Pt reports taking Wellbutrin in the past with positive effect. Start: Wellbutrin XL 150mg PO daily clonidine 0.1mg PO BID Decrease Trazodone to 100mg PO bedtime 12/14: Pt continues to report depression and anxious today; she reports sleeping well. Pt stated, I'm going to try to get up and shower then go to groups today . Pt denies SI/HI/VH/AH. Continue current tx plan. 12/15: Active on unit, attending groups. Pt reports feeling better today ; pt stated, I think the medication is helping. I plan on living with my sister when I leave here and attending IOP . 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 Pt denies SI/HI/VH/AH. per nursing, pt slept 8 hours last night. Continue current tx plan. 12/16 keep same treatment UA for tomorrow. 12/17 UA came back within normal limits UTI resolved. Continue with same treatment. 12/18: Active on unit, keeping to self. Pt reports feeling anxious and depressed but it's tolerable . She reports sleeping well. Pt reports she plans on going to her sisters home after discharge. pt denies SI/HI/VH/AH. Pt requested to be restarted on low dose thorazine d/t being beneficial for her anxiety and agitation in the past. Start: thorazine 10mg PO Q6hr PRN Patient educated on: diagnosis, medication risk/benefits and therapeutic strategies Informed Consent: understands Reason for continued inpatient stay Substantial Risk for: med/psych decompensation Time Spent With Patient Time: Total time managing care of this patient today _20___ minutes.
[2023-12-19 20:25] VITALS: BP 90/54; PULSE 75; RESP 14; TEMP 36.6; O2SAT 96
[2023-12-19 22:13] VITALS: BP 95/59; PULSE 78
[2023-12-19] MEDS: traZODone HCL 100 MG TABLET PO (22:18)
[2023-12-19 22:22] LABS: Glucose, Whole Blood 85 mg/dL (60-115)
[2023-12-20 08:00] VITALS: BP 99/67; PULSE 82; RESP 14; TEMP 36.8; O2SAT 96
[2023-12-20] MEDS: methADONE HCl 20 MG/2 ML ORAL.CONC 58 MG PO (08:05)
[2023-12-20 08:43] LABS: Glucose, Whole Blood 122 mg/dL (60-115)
[2023-12-20] MEDS: Omeprazole 20 MG CAPSULE.DR PO ×2 (08:52→17:30)
[2023-12-20] MEDS: Emtricitabine/Tenofov Alafenam TABLET 1 TAB PO (08:52)
[2023-12-20] MEDS: Dolutegravir Sodium 50 MG TABLET PO (08:52)
[2023-12-20] MEDS: buPROPion HCl XL 150 MG TAB.ER.24H PO (08:53)
[2023-12-20] MEDS: metFORMIN HCl 500 MG TABLET PO (08:53)
[2023-12-20] MEDS: Nicotine 21 MG PATCH.TD24 TRANSDERMA (08:54)
--- NOTE | 2023-12-20 09:08 | HO.PSYCHPN ---
Subjective Subjective Date of Service: 12/20/23 Reason For Visit: crisis Subjective Notes: Conditional Voluntary Interim History: Reviewed with Dr. Brambila. Active on unit, keeping to self. Pt continues to report feeling anxious and depressed ; pt stated, I think it's always going to be there . She reports sleeping well. She plans on going to her sisters home and following up with outpatient providers. pt denies SI/HI/VH/AH. Medication Compliance: Yes Side effects from medications: No Attending Groups: Yes Review of Systems Constitutional: Reports as per HPI Eyes: Reports as per HPI Reports as per HPI Cardiovascular: Reports as per HPI Respiratory: Reports as per HPI Gastrointestinal: Reports as per HPI Musculoskeletal: Reports as per HPI Skin/Breast: Reports as per HPI Reports as per HPI Psychiatric: Reports as per HPI Endocrine: Reports as per HPI Hematologic/Lymphatic: Reports as per HPI Allergic/Immunologic: Reports as per HPI Mental Status Exam Mental Status Exam Narrative: Pt is alert and oriented; behavior is cooperative and calm; dressed in casual attire; mood is described as anxious ; eye contact appropriate; Speech is normal rate, volume and not pressured; thought process is organized and goal directed; Thought content is on tx; otherwise pertinent to relevant topics and without any delusional content, paranoid ideations or grandiosity; denies SI/HI/VH/AH. Diagnostics Vital Signs (24Hr): Vital Signs - 24 hr 12/19/23 20:25 12/19/23 22:13 12/20/23 08:00 Temperature 97.9 F 98.3 F Pulse Rate 75 78 82 Respiratory Rate 14 14 Blood Pressure 90/54 L 95/59 L 99/67 Pulse Oximetry 96 96 Oxygen Delivery Method Room Air Room Air BMI result Body Mass Index 28.0 Labs 12/12/23 23:12 12/19/23 08:34 Labs: Laboratory Results - last 48 hr 12/19/23 12/19/23 12/19/23 08:28 08:34 22:18 Creatinine 0.89 Estim Creat Clear Calc 67.5 Estimated GFR > 60 POC Glucose 95 85 12/20/23 08:32 Creatinine Estim Creat Clear Calc Estimated GFR POC Glucose 122 H Medications Medications Current Medications Al Hydroxide/Mg Hydroxide (Magnesium Hydrox/Alum Hydrox 30 Ml Oral.Susp) 30 ml PO Q6H PRN PRN Reason: Heartburn/Nausea Albuterol Sulfate (Albuterol Sulfate 90 Mcg 8 Gm Inhaler) 2 puff INHALE Q3H PRN PRN Reason: Wheezing Benzocaine (Benzocaine 20 % Oral Gel 9 Gm Tube) 1 appl MUCOUS MEM QID PRN; Protocol PRN Reason: mucous membrane pain Last Admin: 12/18/23 08:37 Dose: 1 appl Bupropion HCl (Bupropion Hcl Xl 150 Mg Tab.Er.24h) 150 mg PO DAILY [facility] Last Admin: 12/20/23 08:53 Dose: 150 mg Chlorpromazine HCl (Chlorpromazine Hcl 10 Mg Tablet) 10 mg PO Q6H PRN PRN Reason: agitation Clonidine HCl (Clonidine Hcl 0.1 Mg Tablet) 0.1 mg PO BID [facility]; Protocol Last Admin: 12/20/23 09:03 Dose: Not Given Diltiazem HCl (Diltiazem Hcl Cd 120 Mg Cap.Er.Deg) 120 mg PO DAILY [facility]; Protocol Last Admin: 12/20/23 09:03 Dose: Not Given Dolutegravir Sodium (Dolutegravir Sodium 50 Mg Tablet) 50 mg PO DAILY [facility] Last Admin: 12/20/23 08:52 Dose: 50 mg Emtricitabine/Tenofovir Alafenamide (Emtricitabine/Tenofov Alafenam Tablet) 1 tab PO DAILY [facility] Last Admin: 12/20/23 08:52 Dose: 1 tab Hydroxyzine HCl (Hydroxyzine Hcl 25 Mg Tablet) 25 mg PO Q6H PRN PRN Reason: Anxiety Ibuprofen (Ibuprofen 400 Mg Tablet) 400 mg PO Q6H PRN PRN Reason: Pain, Moderate(Pain Scale 4-6) Last Admin: 12/19/23 22:17 Dose: 400 mg Magnesium Hydroxide (Milk Of Magnesia 30 Ml Oral.Susp) 30 ml PO DAILY PRN PRN Reason: Constipation Metformin HCl (Metformin Hcl 500 Mg Tablet) 500 mg PO DAILY [facility] Last Admin: 12/20/23 08:53 Dose: 500 mg Methadone HCl (Methadone Hcl 20 Mg/2 Ml Oral.Conc) 58 mg PO DAILY [facility] Last Admin: 12/20/23 08:05 Dose: 58 mg Nicotine (Nicotine 21 Mg Patch.Td24) 21 mg TRANSDERMA DAILY [facility] Last Admin: 12/20/23 08:54 Dose: 21 mg Nicotine Polacrilex (Nicotine Polacrilex 2 Mg Gum) 4 mg BUCCAL Q2H PRN PRN Reason: Nicotine Cravings Omeprazole (Omeprazole 20 Mg Capsule.) 20 mg PO BID@0630,1830 [facility] Last Admin: 12/20/23 08:52 Dose: 20 mg Prazosin HCl (Prazosin Hcl 1 Mg Capsule) 2 mg PO BEDTIME [facility]; Protocol Last Admin: 12/19/23 22:20 Dose: Not Given Trazodone HCl (Trazodone Hcl 100 Mg Tablet) 100 mg PO BEDTIME [facility] Last Admin: 12/19/23 22:18 Dose: 100 mg Allergies Allergies Allergy/AdvReac Type Severity Reaction Status Date / Time acetaminophen [From TYLENOL] Allergy Unknown HIVES Verified 12/12/23 22:27 Assessment & Plan Assessment & Plan (1) MDD (major depressive disorder), recurrent episode: Status: Acute Code(s): F33.9 - Major depressive disorder, recurrent, unspecified (2) PTSD (post-traumatic stress disorder): Status: Acute Code(s): F43.10 - Post-traumatic stress disorder, unspecified (3) Opioid use disorder: Status: Acute Code(s): F11.90 - Opioid use, unspecified, uncomplicated (4) Cocaine use disorder: Status: Acute Code(s): F14.10 - Cocaine abuse, uncomplicated Plan Patient is a 53 year old female with hx of MDD, PTSD, cocaine use d/o and opioid use d/o who self [place] [facility]/t suicidal ideation secondary to life stressors. Plan: CV 15 minute safety checks Continue home medications PT consult: pt reports she uses cane to ambulate referral to outpatient therapist and prescriber encourage groups discharge planning 12/13: Keeping to self. In bed most of the morning. Pt continues to report depression and anxious today; pt stated, I'm not having any withdrawal symptoms and I slept okay. I'm going to try to go to groups . Pt denies SI/HI/VH/AH. Pt reports taking Wellbutrin in the past with positive effect. Start: Wellbutrin XL 150mg PO daily clonidine 0.1mg PO BID Decrease Trazodone to 100mg PO bedtime 12/14: Pt continues to report depression and anxious today; she reports sleeping well. Pt stated, I'm going to try to get up and shower then go to groups today . Pt denies SI/HI/VH/AH. Continue current tx plan. 12/15: Active on unit, attending groups. Pt reports feeling better today ; pt stated, I think the medication is helping. I plan on living with my sister when I leave here and attending IOP . donation worker, Larissa, aware. Pt denies SI/HI/VH/AH. per nursing, pt slept 8 hours last night. Continue current tx plan. 12/16 keep same treatment UA for tomorrow. 12/17 UA came back within normal limits UTI resolved. Continue with same treatment. 12/18: Active on unit, keeping to self. Pt reports feeling anxious and depressed but it's tolerable . She reports sleeping well. Pt reports she plans on going to her sisters home after discharge. pt denies SI/HI/VH/AH. Pt requested to be restarted on low dose thorazine d/t being beneficial for her anxiety and agitation in the past. Start: thorazine 10mg PO Q6hr PRN 12/19: Active on unit, keeping to self. Pt continues to report feeling anxious and depressed ; pt stated, I think it's always going to be there . She reports sleeping well. She plans on going to her sisters home and following up with outpatient providers. pt denies SI/HI/VH/AH. Patient educated on: diagnosis, medication risk/benefits and therapeutic strategies Informed Consent: understands Reason for continued inpatient stay Substantial Risk for: med/psych decompensation Time Spent With Patient Time: Total time managing care of this patient today _20___ minutes.
[2023-12-20] MEDS: Ibuprofen 400 MG TABLET PO ×2 (09:12→20:09)
[2023-12-20] MEDS: chlorproMAZINE HCl 10 MG TABLET PO ×2 (09:18→20:08)
[2023-12-20] MEDS: Benzocaine 20 % Oral Gel 9 GM TUBE 1 APPL MUCOUS MEM ×2 (09:47→20:10)
[2023-12-20] MEDS: Fluticasone Propionate Nasal 16 GM SPRAY 1 SPRAY NOSTRIL-B (17:28)
[2023-12-20 19:20] VITALS: BP 111/66; PULSE 88; RESP 16; TEMP 36.5; O2SAT 97
[2023-12-20] MEDS: Prazosin HCL 1 MG CAPSULE 2 MG PO (20:08)
[2023-12-20] MEDS: cloNIDine HCL 0.1 MG TABLET PO (20:09)
[2023-12-20] MEDS: traZODone HCL 100 MG TABLET PO (20:10)
[2023-12-21 07:35] VITALS: BP 104/58; PULSE 91; RESP 14; TEMP 36.6; O2SAT 95
[2023-12-21] MEDS: methADONE HCl 20 MG/2 ML ORAL.CONC 58 MG PO (08:10)
[2023-12-21] MEDS: dilTIAZem HCL CD 120 MG CAP.ER.DEG PO (08:32)
[2023-12-21] MEDS: Dolutegravir Sodium 50 MG TABLET PO (08:33)
[2023-12-21] MEDS: Emtricitabine/Tenofov Alafenam TABLET 1 TAB PO (08:33)
[2023-12-21] MEDS: buPROPion HCl XL 150 MG TAB.ER.24H PO (08:33)
[2023-12-21] MEDS: metFORMIN HCl 500 MG TABLET PO (08:33)
[2023-12-21] MEDS: cloNIDine HCL 0.1 MG TABLET PO ×2 (08:33→20:32)
[2023-12-21] MEDS: Ibuprofen 400 MG TABLET PO ×2 (08:33→20:32)
[2023-12-21] MEDS: Omeprazole 20 MG CAPSULE.DR PO ×2 (08:34→18:16)
[2023-12-21] MEDS: Nicotine 21 MG PATCH.TD24 TRANSDERMA (08:34)
[2023-12-21 08:46] LABS: Glucose, Whole Blood 127 mg/dL (60-115)
[2023-12-21] MEDS: Fluticasone Propionate Nasal 16 GM SPRAY 1 SPRAY NOSTRIL-B (09:09)
--- NOTE | 2023-12-21 10:23 | P.PNPSI_ITS ---
Subjective Subjective Date of Service: 12/21/23 Reason For Visit: crisis Subjective Notes: Conditional Voluntary Interim History: Pt slept 6 hrs. Pt reports some sedation with methadone which then she needs to lay down for a bit. She denies SI/HI. She reports mood is much improved. Trazodone kept at 100mg po qhs due to hx of qtc prolongation in combination with methadone. dc clonidine due to ortho hotn. Review of Systems Review of Systems Yes all other systems are reviewed and are negative Constitutional: Reports as per HPI Eyes: Reports as per HPI Reports as per HPI Cardiovascular: Reports as per HPI Respiratory: Reports as per HPI Gastrointestinal: Reports as per HPI Musculoskeletal: Reports as per HPI Skin/Breast: Reports as per HPI Reports as per HPI Psychiatric: Reports as per HPI Endocrine: Reports as per HPI Hematologic/Lymphatic: Reports as per HPI Allergic/Immunologic: Reports as per HPI Mental Status Exam Mental Status Exam Narrative: Pt is alert and oriented; behavior is cooperative and calm; dressed in casual attire; mood is described as anxious ; eye contact appropriate; Speech is normal rate, volume and not pressured; thought process is organized and goal directed; Thought content is on tx; otherwise pertinent to relevant topics and without any delusional content, paranoid ideations or grandiosity; denies SI/HI/VH/AH. Diagnostics Vital Signs (24Hr): Vital Signs - 24 hr 12/20/23 19:20 12/21/23 07:35 Temperature 97.7 F 97.8 F Pulse Rate 88 91 Respiratory Rate 16 14 Blood Pressure 111/66 104/58 L Pulse Oximetry 97 95 Oxygen Delivery Method Room Air BMI result Body Mass Index 28.0 Labs 12/12/23 23:12 12/19/23 08:34 Labs: Laboratory Results - last 48 hr 12/19/23 12/20/23 12/21/23 22:18 08:32 08:39 POC Glucose 85 122 H 127 H Medications Medications Current Medications Al Hydroxide/Mg Hydroxide (Magnesium Hydrox/Alum Hydrox 30 Ml Oral.Susp) 30 ml PO Q6H PRN PRN Reason: Heartburn/Nausea Albuterol Sulfate (Albuterol Sulfate 90 Mcg 8 Gm Inhaler) 2 puff INHALE Q3H PRN PRN Reason: Wheezing Benzocaine (Benzocaine 20 % Oral Gel 9 Gm Tube) 1 appl MUCOUS MEM QID PRN; Protocol PRN Reason: mucous membrane pain Last Admin: 12/20/23 20:10 Dose: 1 appl Bupropion HCl (Bupropion Hcl Xl 150 Mg Tab.Er.24h) 150 mg PO DAILY [facility] Last Admin: 12/21/23 08:33 Dose: 150 mg Chlorpromazine HCl (Chlorpromazine Hcl 10 Mg Tablet) 10 mg PO Q6H PRN PRN Reason: agitation Last Admin: 12/20/23 20:08 Dose: 10 mg Clonidine HCl (Clonidine Hcl 0.1 Mg Tablet) 0.1 mg PO BID [facility]; Protocol Last Admin: 12/21/23 08:33 Dose: 0.1 mg Diltiazem HCl (Diltiazem Hcl Cd 120 Mg Cap.Er.Deg) 120 mg PO DAILY [facility]; Protocol Last Admin: 12/21/23 08:32 Dose: 120 mg Dolutegravir Sodium (Dolutegravir Sodium 50 Mg Tablet) 50 mg PO DAILY [facility] Last Admin: 12/21/23 08:33 Dose: 50 mg Emtricitabine/Tenofovir Alafenamide (Emtricitabine/Tenofov Alafenam Tablet) 1 tab PO DAILY [facility] Last Admin: 12/21/23 08:33 Dose: 1 tab Fluticasone Propionate (Fluticasone Propionate Nasal 16 Gm [place]) 1 spray NOSTRIL-B DAILY [facility] Last Admin: 12/21/23 09:09 Dose: 1 spray Hydroxyzine HCl (Hydroxyzine Hcl 25 Mg Tablet) 25 mg PO Q6H PRN PRN Reason: Anxiety Ibuprofen (Ibuprofen 400 Mg Tablet) 400 mg PO Q6H PRN PRN Reason: Pain, Moderate(Pain Scale 4-6) Last Admin: 12/21/23 08:33 Dose: 400 mg Magnesium Hydroxide (Milk Of Magnesia 30 Ml Oral.Susp) 30 ml PO DAILY PRN PRN Reason: Constipation Metformin HCl (Metformin Hcl 500 Mg Tablet) 500 mg PO DAILY [facility] Last Admin: 12/21/23 08:33 Dose: 500 mg Methadone HCl (Methadone Hcl 20 Mg/2 Ml Oral.Conc) 58 mg PO DAILY [facility] Last Admin: 12/21/23 08:10 Dose: 58 mg Nicotine (Nicotine 21 Mg Patch.Td24) 21 mg TRANSDERMA DAILY [facility] Last Admin: 12/21/23 08:34 Dose: 21 mg Nicotine Polacrilex (Nicotine Polacrilex 2 Mg Gum) 4 mg BUCCAL Q2H PRN PRN Reason: Nicotine Cravings Omeprazole (Omeprazole 20 Mg Capsule.) 20 mg PO BID@0630,1830 [facility] Last Admin: 12/21/23 08:34 Dose: 20 mg Prazosin HCl (Prazosin Hcl 1 Mg Capsule) 2 mg PO BEDTIME [facility]; Protocol Last Admin: 12/20/23 20:08 Dose: 2 mg Trazodone HCl (Trazodone Hcl 100 Mg Tablet) 100 mg PO BEDTIME [facility] Last Admin: 12/20/23 20:10 Dose: 100 mg Allergies Allergies Allergy/AdvReac Type Severity Reaction Status Date / Time acetaminophen [From TYLENOL] Allergy Unknown HIVES Verified 12/12/23 22:27 Assessment & Plan Assessment & Plan (1) MDD (major depressive disorder), recurrent episode: Status: Acute Code(s): F33.9 - Major depressive disorder, recurrent, unspecified (2) PTSD (post-traumatic stress disorder): Status: Acute Code(s): F43.10 - Post-traumatic stress disorder, unspecified (3) Opioid use disorder: Status: Acute Code(s): F11.90 - Opioid use, unspecified, uncomplicated (4) Cocaine use disorder: Status: Acute Code(s): F14.10 - Cocaine abuse, uncomplicated Plan Patient is a 53 year old female with hx of MDD, PTSD, cocaine use d/o and opioid use d/o who self presented to [facility] [place] [facility] d/t suicidal ideation secondary to life stressors. Plan: CV 15 minute safety checks Continue home medications PT consult: pt reports she uses cane to ambulate referral to outpatient therapist and prescriber encourage groups discharge planning 12/13: Keeping to self. In bed most of the morning. Pt continues to report depression and anxious today; pt stated, I'm not having any withdrawal symptoms and I slept okay. I'm going to try to go to groups . Pt denies SI/HI/VH/AH. Pt reports taking Wellbutrin in the past with positive effect. Start: Wellbutrin XL 150mg PO daily clonidine 0.1mg PO BID Decrease Trazodone to 100mg PO bedtime 12/14: Pt continues to report depression and anxious today; she reports sleeping well. Pt stated, I'm going to try to get up and shower then go to groups today . Pt denies SI/HI/VH/AH. Continue current tx plan. 12/15: Active on unit, attending groups. Pt reports feeling better today ; pt stated, I think the medication is helping. I plan on living with my sister when I leave here and attending IOP . kennel worker, Larissa, aware. Pt denies SI/HI/VH/AH. per nursing, pt slept 8 hours last night. Continue current tx plan. 12/16 keep same treatment UA for tomorrow. 12/17 UA came back within normal limits UTI resolved. Continue with same treatment. 12/18: Active on unit, keeping to self. Pt reports feeling anxious and depressed but it's tolerable . She reports sleeping well. Pt reports she plans on going to her sisters home after discharge. pt denies SI/HI/VH/AH. Pt requested to be restarted on low dose thorazine d/t being beneficial for her anxiety and agitation in the past. Start: thorazine 10mg PO Q6hr PRN 12/19: Active on unit, keeping to self. Pt continues to report feeling anxious and depressed ; pt stated, I think it's always going to be there . She reports sleeping well. She plans on going to her sisters home and following up with outpatient providers. pt denies SI/HI/VH/AH. 12/20 dc clonidine due to ortho hotn. Reason for continued inpatient stay Substantial Risk for: inability to function Time Spent With Patient Time: Total time managing care of this patient today ____ minutes.
[2023-12-21 19:35] VITALS: BP 109/55; PULSE 58; RESP 16; TEMP 36.4; O2SAT 96
[2023-12-21 20:30] VITALS: BP 106/58
[2023-12-21 20:31] VITALS: BP 106/58
[2023-12-21] MEDS: Prazosin HCL 1 MG CAPSULE 2 MG PO (20:31)
[2023-12-21 20:32] VITALS: BP 106/58
[2023-12-21] MEDS: traZODone HCL 100 MG TABLET PO (20:32)
[2023-12-21] MEDS: chlorproMAZINE HCl 10 MG TABLET PO (20:33)
--- NOTE | 2023-12-22 07:46 | PM.PSYDC ---
DS: Providers Provider Date of Service: 12/22/23 Date of admission: 12/13/23 13:05 Date of discharge: 12/22/23 Primary care physician: Kristin rAmas MD Discharging clinician: Michelle Romeo DS: Diagnosis Discharge Diagnosis (1) MDD (major depressive disorder), recurrent episode: Status: Acute (2) PTSD (post-traumatic stress disorder): Status: Acute (3) Opioid use disorder: Status: Acute (4) Cocaine use disorder: Status: Acute DS: Medications Discharge Medications Home Medications: Previous Rx's ?Medication ?Instructions ?Recorded albuterol sulfate 90 mcg/actuation 2 puff inhalation Q3H PRN Wheezing 12/22/23 aerosol inhaler (Ventolin HFA) #6.7 grams bupropion HCl 150 mg 24 hr tablet, 150 mg PO DAILY #30 tabs 12/22/23 extended release diltiazem HCl 120 mg 120 mg PO DAILY #30 caps 12/22/23 capsule,extended release 24 hr (Cardizem CD) dolutegravir 50 mg tablet (Tivicay) 50 mg PO DAILY #30 tabs 12/22/23 emtricitabine 200 mg-tenofovir 1 tab PO DAILY #30 tabs 12/22/23 alafenamide fumarate 25 mg tablet (Descovy) fluticasone propionate 50 1 spray intranasal DAILY #16 grams 12/22/23 mcg/actuation nasal spray,suspension metformin 500 mg tablet 500 mg PO DAILY #30 tabs 12/22/23 methadone 10 mg/mL oral 58 mg (5.8 mL) PO DAILY #0 mL 12/22/23 concentrate (Methadose) nicotine 21 mg/24 hr daily 21 mg transdermal DAILY #30 ea 12/22/23 transdermal patch omeprazole 20 mg capsule,delayed 20 mg PO BID@0630,1830 #60 caps 12/22/23 release prazosin 2 mg capsule 2 mg PO BEDTIME #30 caps 12/22/23 trazodone 100 mg tablet 100 mg PO BEDTIME #30 tabs 12/22/23 Mental Status Exam Mental Status Exam Narrative: Pt is alert and oriented; behavior is cooperative and calm; dressed in casual attire; mood is described as much better ; eye contact appropriate; Speech is normal rate, volume and not pressured; thought process is organized and goal directed; Thought content is on tx; otherwise pertinent to relevant topics and without any delusional content, paranoid ideations or grandiosity; denies SI/HI/VH/AH. Data Data Completed and Pending Completed studies during hospitalization [Text1]: 12/15/23 12/16/23 12/16/23 08:54 08:37 21:43 Creatinine Estim Creat Clear Calc Estimated GFR POC Glucose 120 H 104 141 H Urine Color Urine Appearance Urine pH Ur Specific [place] Urine Protein Urine Glucose (UA) Urine Ketones Urine Blood Urine Nitrite Ur Leukocyte Esterase Urine RBC Urine WBC Ur Squamous Epith Cells Urine Bacteria Hyaline Casts 12/17/23 12/17/23 12/18/23 08:58 21:25 08:10 Creatinine Estim Creat Clear Calc Estimated GFR POC Glucose 125 H 124 H Urine Color Yellow Urine Appearance Clear Urine pH 7.5 Ur Specific [place] 1.010 Urine Protein Negative Urine Glucose (UA) Negative Urine Ketones Negative Urine Blood Negative Urine Nitrite Negative Ur Leukocyte Esterase Negative Urine RBC 0-2 Urine WBC 0-5 Ur Squamous Epith Cells 0-2 Urine Bacteria None Seen Hyaline Casts 0-2 12/18/23 12/19/23 12/19/23 08:13 08:28 08:34 Creatinine 0.89 Estim Creat Clear Calc 67.5 Estimated GFR > 60 POC Glucose 94 95 Urine Color Urine Appearance Urine pH Ur Specific [place] Urine Protein Urine Glucose (UA) Urine Ketones Urine Blood Urine Nitrite Ur Leukocyte Esterase Urine RBC Urine WBC Ur Squamous Epith Cells Urine Bacteria Hyaline Casts 12/19/23 12/20/23 12/21/23 22:18 08:32 08:39 Creatinine Estim Creat Clear Calc Estimated GFR POC Glucose 85 122 H 127 H Urine Color Urine Appearance Urine pH Ur Specific [place] Urine Protein Urine Glucose (UA) Urine Ketones Urine Blood Urine Nitrite Ur Leukocyte Esterase Urine RBC Urine WBC Ur Squamous Epith Cells Urine Bacteria Hyaline Casts 12/12/23 Unknown Urine clean catch - Clean Catch Midstream Urine Culture - Final Escherichia coli DS: Summary Hospital Course Hospital Course: Patient is a 53 year old female with hx of MDD, PTSD, cocaine use d/o and opioid use d/o who self [place] [facility] [place]/t suicidal ideation secondary to life stressors. Per crisis report, pt reported suicidal ideation with plan to OD on heroin or be hit by a truck. Pt reported she was evicted from her home yesterday and is now homeless. Pt reported being in mourning from the loss of her mother who in February 2023 and overwhelmed by using substances after being sober for 4 months. hx of multiple suicide attempts; hanging and overdose and putting a gun to her head before someone took it away; dates are unclear. 2 prior inpatient psychiatric hospitalizations( [facility] and [facility]). UTOX positive for cocaine, opiates, methadone, fentanyl, marijauna. During admission assessment, pt presents alert and oriented x3, calm, cooperative. Pt reports feeling anxious and depressed ; pt stated, I've been suicidal since June when my fiance of pneumonia. We were together for 12 years. I'm also depressed because I was evicted from my apartment because my room mate was selling drugs. I was in [facility] for four months because of it and didn't want to leave because they treat you well . Pt reports she has been staying with a friend since being released from the correctional facility a week ago. Pt reports suicidal ideation to overdose; pt stated, I miss my man and my mom . Pt denies HI/VH/AH. She reports using cocaine, heroin and marijuana over the past week. Pt reports she does not have outpatient psychiatric providers but would like referrals. Past Psychiatric History: hx of multiple suicide attempts; hanging and overdose and putting a gun to her head before someone took it away; dates are unclear. 2 prior inpatient psychiatric hospitalizations( [facility] and [facility]). denies outpatient psychiatric providers. Medical Evaluation Reviewed: Yes HOSPITAL COURSE On the unit, pt was admitted on a CV and placed on 15 minutes checks for safety. Pt initially assigned under the care of Vandana Durán NP please refer to her notes for further details. In brief, after discussing risks, benefits and alternative treatment options, pt was started on clonidine for anxiety, however, this medication was discontinued as pt had orthostatic HOTN and was not sure as to therapeutic benefit. She was continued on wellbutrin for depression, methadone for MAT. Trazadone was kept at 100mg po qhs in part due to pt's hx of Qtc prolongation. She was also continued on prazosin for nightmares. Her affect gradually presented as brighter. Pt reported less depressed mood and denied suicidal or homicidal ideation. She did not present with psychosis or delusional content. There were no incidences of disruptive behaviors nor need for restraints. Pt given narcan at time of discharge. Status at Discharge Cognitive/behavioral status at discharge: Pt with brighter, non labile affect. No SI/HI. No psychosis nor delusions. Slleping and eating well. No aggression towards self or others. future oriented. Functional status at discharge: independent ambulation Overall status at discharge: patient is progressing back to baseline Time Spent with Patient Time attestation: Total time managing care of this patient today ____ minutes. Discharge Plan Discharge Anticipated Discharge Date/Time: 12/22/23 07:37 Patient Disposition: Home, Self-Care Discharge Diagnosis: MDD OPioid use disorder cocaine use disorder Referrals: Therapy Intake: Lauren Gracia ([facility]) [Other] - 12/26/23 10:00 am (Appointment is in person at the office ) [facility] [Other] - 01/17/24 9:00 am (Telehealth ) [facility] Client Advocate: Dbe Bolanos [Other] - 1 Week (Deb is assigned to you as your Client Advocate through [facility]; she can be contacted if you have any questions about your care or needing additional referrals/assistance. Call the above number and enter Ext. [phone]) [facility] Behavioral Health Clinician: Robert Resendez [Other] - 1 Week (Robert should be following up with you by phone within a few days of your discharge. He can also assist with any questions or additional referrals/needs. [facility] has also referred you to a Community Health Worker (CHW) to assist with applying for housing and other resources. If you do not hear from the CHW next week, you can reach out to Robert. Call the above number and enter Ext. [phone]) Intensive Outpatient Program (IOP): [facility] ([facility]) [Other] - 12/28/23 9:00 am (This is your intake appointment and at this appointment they will give you more details about the program. The program is Tuesday-Tuesday 9:30am-1pm) Methadone: [facility] [Other] - 12/23/23 9:30 am (You will begin dosing on 12/22 and will have to complete paperwork and an intake, which will take approximately 3 hours. BRING YOUR LAST DOSE LETTER ) Kristin Armas MD [Primary Care Provider] - 1 Week (12-20-23 Awaiting call back from your primary care provider for follow up appt. Please call them if you haven't heard from them within 24 hours of discharge to schedule your follow up appt. Kristin Armas MD new fax tn [phone]) Discharge Medications: New nicotine 21 mg/24 hr Patch 24 Hour 21 mg transdermal DAILY Qty: 30 0RF diltiazem HCl [Cardizem CD] 120 mg Capsule,Extended Release 24hr 120 mg PO DAILY Qty: 30 0RF Protocol: Hold for SBP/HR < HOLD for SBP < : 90 HOLD for HR < : 60 albuterol sulfate [Ventolin HFA] 90 mcg/actuation Hfa Aerosol Inhaler 2 puff inhalation Q3H PRN (Reason: Wheezing) Qty: 6.7 0RF Tivicay 50 mg Tablet 50 mg PO DAILY Qty: 30 0RF [place] 200-25 mg Tablet 1 tab PO DAILY Qty: 30 0RF prazosin 2 mg capsule 2 mg PO BEDTIME Qty: 30 0RF metformin 500 mg Tablet 500 mg PO DAILY Qty: 30 0RF trazodone 100 mg Tablet 100 mg PO BEDTIME Qty: 30 0RF omeprazole 20 mg Capsule,Delayed Release(Dr/Ec) 20 mg PO BID@0630,1830 Qty: 60 0RF methadone [Methadose] 10 mg/mL Concentrate 58 mg PO DAILY Qty: 0 0RF Rx Instructions: Partial Fill upon patient request. fluticasone propionate 50 mcg/actuation [place],Suspension 1 spray intranasal DAILY Qty: 16 0RF bupropion HCl 150 mg Tablet Extended Release 24 Hr 150 mg PO DAILY Qty: 30 0RF Discontinued albuterol sulfate [Ventolin HFA] 90 mcg/actuation HFA aerosol inhaler 2 inh INHALATION Q3-4H PRN (Reason: Wheezing) prazosin 2 mg capsule 2 mg PO BEDTIME trazodone 150 mg tablet 150 mg PO BEDTIME metformin 500 mg tablet 500 mg PO DAILY omeprazole 20 mg capsule,delayed release(DR/EC) 20 mg PO BIDAC@0630,1630 [place] 200-25 mg tablet 1 tab PO DAILY diltiazem HCl [Cartia XT] 120 mg capsule,extended release 24hr 120 mg PO DAILY Tivicay 50 mg tablet 50 mg PO DAILY Discharge Orders: Discharge Order (Routine); Ordered 12/22/23 Ordered By: Michelle Romeo Diet: Diabetic diet Activity on Discharge: As tolerated Stand Alone Forms: Patient Portal Discharge page Print Language: Sami Care Plan Goals: 1. maintain mood 2. No SI/HI 3. Harm reduction- narcan given on discharge Health Concerns: Follow up with PCP Plan of Treatment: 1. take medications as prescribed 2. Go to nearest ED or call 911 in event of emergency Pt with brighter, non labile affect. No SI/HI. No psychosis or delusions. Sleeping well. No aggression towards self or others. Assessment: Pt with brighter, non labile affect. No SI/HI. No psychosis or delusions. Sleeping well. No aggression towards self or others.
[2023-12-22 07:57] VITALS: BP 110/60; PULSE 80; RESP 16; TEMP 36.7; O2SAT 96
[2023-12-22] MEDS: methADONE HCl 20 MG/2 ML ORAL.CONC 58 MG PO (08:34)
[2023-12-22 08:45] LABS: Glucose, Whole Blood 106 mg/dL (60-115)
[2023-12-22] MEDS: dilTIAZem HCL CD 120 MG CAP.ER.DEG PO (08:54)
[2023-12-22] MEDS: Nicotine 21 MG PATCH.TD24 TRANSDERMA (08:54)
[2023-12-22] MEDS: Dolutegravir Sodium 50 MG TABLET PO (08:54)
[2023-12-22] MEDS: Omeprazole 20 MG CAPSULE.DR PO (08:54)
[2023-12-22] MEDS: metFORMIN HCl 500 MG TABLET PO (08:54)
[2023-12-22] MEDS: buPROPion HCl XL 150 MG TAB.ER.24H PO (08:55)
[2023-12-22] MEDS: Emtricitabine/Tenofov Alafenam TABLET 1 TAB PO (08:55)
[2023-12-22] MEDS: Naloxone HCl Nasal TAKE HOME 4 MG SPRAY 8 MG NOSTRILALT (08:59)
[2023-12-22] MEDS: Ibuprofen 400 MG TABLET PO (09:00)
[2023-12-22] MEDS: chlorproMAZINE HCl 10 MG TABLET PO (09:00)
[2023-12-22] MEDS: Fluticasone Propionate Nasal 16 GM SPRAY 1 SPRAY NOSTRIL-B (09:00)
== END 2023-12-22 12:47 | disposition home or self-care (01) | DRG 885 ==
LOC: HO.ED 12-13 07:24 → HO.PADLT16 12-13 13:09
PROVIDERS: Emergency Medicine; Psychiatry & Neurology Psychiatry; Admitting Provider Registered Nurse; Emergency Provider Internal Medicine; PCP Internal Medicine; Responsible Provider Registered Nurse; Visit Provider Psychiatry & Neurology Psychiatry
DX: F33.9 Major depressive disorder, recurrent, unspecified (principal); R45.851 Suicidal ideations; F11.20 Opioid dependence, uncomplicated; F14.10 Cocaine abuse, uncomplicated; F43.10 Post-traumatic stress disorder, unspecified; Z79.51 Long term (current) use of inhaled steroids; Z79.84 Long term (current) use of oral hypoglycemic drugs; Z79.899 Other long term (current) drug therapy
CPT/HCPCS: 36415; 80048; 80053; 80061; 80076; 80307; 81001; 82565; 82947; 83690; 85025; 87086; 87088; 87186; 93005; 97161; 99285; S9485

== ENCOUNTER → 2023-12-13 11:17 | Outpatient (BNV) | payer MEDICARE, MEDICAID, SELFPAY | PROVIDERS: Admitting Provider Registered Nurse; Emergency Provider Internal Medicine; PCP Internal Medicine; Responsible Provider Registered Nurse; Visit Provider Internal Medicine Cardiovascular Disease | DX: R00.0 Tachycardia, unspecified (principal) | CPT/HCPCS: 93010 ==

== ENCOUNTER → 2023-12-13 13:05 | Outpatient (BNV) | payer OTHER, SELFPAY | PROVIDERS: Admitting Provider Registered Nurse; Emergency Provider Internal Medicine; PCP Internal Medicine; Responsible Provider Registered Nurse; Visit Provider Registered Nurse | DX: F33.2 Major depressive disorder, recurrent severe without psychotic features (principal); F14.10 Cocaine abuse, uncomplicated; F11.90 Opioid use, unspecified, uncomplicated; F43.11 Post-traumatic stress disorder, acute | CPT/HCPCS: 90792; 99231; 99232; 99238 ==